=== PATIENT | male | born 1950 | race Caucasian/White ===

== ENCOUNTER 2018-12-30 08:55 | Inpatient (IN) ==
--- NOTE | 2018-11-25 15:19 | PAT Medication Instructions ---
Medication Instructions Date of Service November 25, 2018 Home Medications Voltaren 75 mg PO BID alprazolam [Xanax] 0.25 mg PO HS aspirin 81 mg PO QAM hydrocodone-acetaminophen [[place]] 1 tab PO Q6H PRN lisinopril 10 mg PO QAM multivitamin 1 tab PO QAM pantoprazole [Protonix] 40 mg PO QAM prednisone 10 mg PO QAM risedronate [Actonel] 150 mg PO MONTHLY Continue as directed risedronate [Actonel] 150 mg PO MONTHLY prednisone 10 mg PO QAM ASK your surgeon for instructions Voltaren 75 mg PO BID ASK your prescriber and surgeon aspirin 81 mg PO QAM DO NOT take the morning of surgery lisinopril 10 mg PO QAM multivitamin 1 tab PO QAM Take morning of surgery With a small sip of water, OTHERWISE NOTHING TO EAT OR DRINK AFTER MIDNIGHT: hydrocodone-acetaminophen [[place]] 1 tab PO Q6H PRN (okay to take up to 4 hours prior to surgery if needed) pantoprazole [Protonix] 40 mg PO QAM Take evening before surgery alprazolam [Xanax] 0.25 mg PO HS hydrocodone-acetaminophen [[place]] 1 tab PO Q6H PRN (if needed) Other Notes If you have any questions please call us at [phone] or [phone] or [phone] or [phone]
--- NOTE | 2018-11-28 09:49 | Anesthesiology Consultation ---
Date of Service November 28, 2018 Assessment & Plan (1) Encounter for pre-operative examination: Chart Review Chart Review: Acceptable Risk for Surgery and Patient seen in Pre Admission Testing Teaching & Discussion Pre-Anesthesia Teaching/Discussion Notes: Instructed NPO after midnight before surgery,except medications with 15 cc of water. Medication instructions provided according to the PAT guidelines. History Surgery Operation Date: 12/30/18 07:00 Proposed Procedures p Left Reverse Total Shoulder Arthroplasty - Adi De La O DO s Left Wrist Dorsal Ganglion Cyst Removal - Adi De La O DO Height/Weight Height: 5 ft 10 in Weight: 115.3 kg Allergies Allergy/AdvReac Type Severity Reaction Status Date / Time No Known Allergies Allergy Mild Verified 11/25/18 08:07 Medications Home Medications Medication Instructions Recorded Confirmed Last Taken Voltaren 75 mg PO BID 11/25/18 11/25/18 Unknown alprazolam [Xanax] 0.25 mg PO HS 11/25/18 11/25/18 Unknown aspirin 81 mg PO QAM 11/25/18 11/25/18 Unknown hydrocodone-acetaminophen [[place]] 1 tab PO Q6H PRN 11/25/18 11/25/18 Unknown lisinopril 10 mg PO QAM 11/25/18 11/25/18 Unknown multivitamin 1 tab PO QAM 11/25/18 11/25/18 Unknown pantoprazole [Protonix] 40 mg PO QAM 11/25/18 11/25/18 Unknown prednisone 10 mg PO QAM 11/25/18 11/25/18 Unknown risedronate [Actonel] 150 mg PO MONTHLY 11/25/18 11/25/18 Unknown Past Medical History Medical History Degenerative disc disease GERD (gastroesophageal reflux disease) CONTROLLED HTN (hypertension) History of anxiety Obesity Osteoarthritis Rheumatoid arthritis ON PREDNISONE 10MG DAILY (CHRONIC) Past Surgical History Surgical History H/O arthrodesis B/L FOOT + REVISION History of arthroscopic knee surgery RIGHT History of colonoscopy History of esophagogastroduodenoscopy (EGD) History of surgery RUPTURED QUADRICEPS TENDON REPAIR History of tonsillectomy History of total hip arthroplasty RIGHT History of total knee replacement B/L History of total shoulder replacement Right reverse TSA= 07/17/16= Grade view 2, MAC 4, ETT 8.0 at [facility] Hx of removal of cyst RIGHT POSTERIOR SHOULDER S/P debridement LEFT FOOT WOUND Past Anesthesia History No Hx of Anesthesia Complications and No Family Hx of Anesthesia Complications History of PONV No Motion Sickness Screening History of Motion Sickness: No Social History Smoking Status: Former smoker Do You Dip or Chew Tobacco: No Smoking End Date: QUIT CIGARETTES 01/2018; 1/2 PPD x 20 YEARS; DAILY VAPE USE Hx Alcohol Use: Yes Alcohol type: beer alcohol intake frequency: a few times a month Hx Substance Use: Yes substance use type: marijuana Last Used Substance Other:: MEDICAL MARIJUANA PEN HS 2/2 RA PAIN- NO LONGER HAS ACTIVE CARD Exercise / Class Metabolic Activity II 4-5 Yardwork/Stairs/Walk up hill Review of Systems Patient denies chest pain, shortness of breath, dyspnea on exertion, cough, wheezing, palpitations. Physical Exam Vital Signs VITALS BP 157/83 P 64 TEMP 98.1 SP02 95%RA RESP 16 PHYSICAL Full neck and c-spine range of motion. Full TMJ range of motion. TMD 3 finger breaths Mallampati Score 3 Dentition: partial on upper (only four remaining on upper), several missing sides/molars on lower, few crowns "all over" Lungs: clear throughout to auscultation Cardiac: regular rate and rhythm, no murmurs noted Spine: normal Carotid arteries: negative bruit Extremities: no edema Trimmed berger Short neck Testing Electrocardiogram Date: 11/28/18 NSR at 60bpm. iRBBB. Chest X-Ray Date: 11/28/18 1 cm right midlung zone opacity, finding which is felt to be secondary to a healing rib fracture. No evidence of acute parenchymal consolidation. No ev idence of failure. Cervical Spine Date: 11/28/18 No evidence for cervical spine instability during flexion or extension. Severe multilevel degenerative disc disease and facet arthrosis within the cervical spine which is similar to previous exam. Laboratory Results 11/28/18 10:37 11/28/18 10:37 Blood Type B Positive 11/28/18 10:37 Antibody Screen NEGATIVE 11/28/18 10:37 PT 10.1 Seconds (9.0-12.0) 11/28/18 10:37 INR 1.0 (0.9-1.1) 11/28/18 10:37 APTT 24.3 Seconds (21.0-31.0) 11/28/18 10:37
[2018-11-28 11:26] LABS: Basophils # (auto) 0.06 K/uL (0-0.2); Basophils % (auto) 0.6 %; Eosinophils # (auto) 0.05 K/uL (0-0.5); Eosinophils % (auto) 0.5 %; Hematocrit (blood only) 41.6 % (42-52); Hemoglobin 13.9 g/dL (14.0-18.0); Immature Granulocytes # (auto) 0.05 K/uL (0.00-0.02); Immature Granulocytes % (auto) 0.5 %; Lymphocytes # (auto) 0.95 K/uL (1.2-3.4); Lymphocytes % (auto) 9.2 %; Mean Corpuscular Hgb Conc 33.4 g/dL (32-36); Mean Corpuscular Volume 92.2 fL (80-100); Mean Platelet Volume 9.4 fL (7.4-10.4); Monocytes # (auto) 0.64 K/uL (0.11-0.59); Monocytes % (auto) 6.2 %; Neutrophils # (auto) 8.54 K/uL (1.4-6.5); Platelet Count 239 K/uL (130-400); RDW Coefficient of Variation 13.5 % (11.5-14.5); RDW Standard Deviation 45.5 fL (36.4-46.3); Red Blood Count 4.51 M/uL (4.7-6.1); White Blood Count 10.29 K/uL (4.8-10.8)
--- NOTE | 2018-11-28 11:30 | XRay Report ---
XR chest 2V routine CLINICAL HISTORY: PREOP COMPARISON STUDY: March 2011 FINDINGS: The cardiac and mediastinal contours remain stable. There are postsurgical changes of a rev erse total right shoulder arthroplasty. There is elevation of the left humerus suggesting chronic rot ator cuff tear. There is no acute parenchymal consolidation. There is no failure. There are no pleura l effusions. A right midlung zone opacity is felt to be secondary to a healing rib fracture. IMPRESSION: 1. 1 cm right midlung zone opacity, finding which is felt to be secondary to a healing rib fracture 2. No evidence of acute parenchymal consolidation. No evidence of failure. Electronically signed by: Leo Lino M.D. 11/28/2018 11:28 AM
[2018-11-28 11:41] LABS: Partial Thromboplastin Ratio 0.9; Partial Thromboplastin Time 24.3 Seconds (21.0-31.0); Prothrombin Time 10.1 Seconds (9.0-12.0)
[2018-11-28 11:47] LABS: Calcium 9.1 mg/dl (8.5-10.1); Creatinine Clr Calc Pharmacy 108.3 ml/min; Est GFR (African American) 104.8; Est GFR (Non-African American) 90.4; Potassium 4.5 mmol/L (3.5-5.1)
--- NOTE | 2018-11-28 12:06 | XRay Report ---
LATERAL CERVICAL SPINE RADIOGRAPHS WITH FLEXION AND EXTENSION CLINICAL HISTORY: RHEUMATOID ARTHRITIS COMPARISON STUDY: Cervical spine radiograph June 23, 2016. FINDINGS: There is 3 mm retrolisthesis of C4 on C5. There is severe multilevel degenerative disc dise ase and facet arthrosis. There is no evidence for cervical spine instability during flexion or extens ion. Alignment of the C1-C2 articulation remains anatomic. There is no fracture. IMPRESSION: 1. No evidence for cervical spine instability during flexion or extension. 2. Severe multilevel degenerative disc disease and facet arthrosis within the cervical spine which is similar to previous exam. Electronically signed by: Michael Martínez M.D. 11/28/2018 12:05 PM
--- NOTE | 2018-12-29 21:12 | History & Physical Report ---
Date of Service December 29, 2018 Assessment & Plan (1) Rotator cuff arthropathy of left shoulder: Proceed with a left reverse total shoulder arthroplasty. Postoperatively he will be kept overnight in the hospital for postoperative medical management. He plans to go to out patient physical therapy at [facility]. Present on Admission?: Yes History of Present Illness Chief Complaint: Rotator cuff arthropathy of the left shoulder Primary Care Provider: Marlon Ramirez MD Philippe is a pleasant 68-year-old male who I did a right reverse shoulder arthroplasty on about 2 years ago. He is done very well with that. Unfortunately he is having a lot of pain in his left shoulder. X-rays and clinical examination have been diagnostic for rotator cuff arthropathy of the left shoulder. After failing conservative treatment, he has elected proceed with a left reverse shoulder arthroplasty. Allergies Allergy/AdvReac Type Severity Reaction Status Date / Time No Known Allergies Allergy Mild Verified 11/25/18 08:07 Home Medications Home Medications Medication Instructions Recorded Confirmed Type Voltaren 75 mg PO BID 11/25/18 11/25/18 History alprazolam [Xanax] 0.25 mg PO HS 11/25/18 11/25/18 History aspirin 81 mg PO QAM 11/25/18 11/25/18 History hydrocodone-acetaminophen [[place]] 1 tab PO Q6H PRN 11/25/18 11/25/18 History lisinopril 10 mg PO QAM 11/25/18 11/25/18 History multivitamin 1 tab PO QAM 11/25/18 11/25/18 History pantoprazole [Protonix] 40 mg PO QAM 11/25/18 11/25/18 History prednisone 10 mg PO QAM 11/25/18 11/25/18 History risedronate [Actonel] 150 mg PO MONTHLY 11/25/18 11/25/18 History Past Med/Surg History Medical History Degenerative disc disease GERD (gastroesophageal reflux disease) CONTROLLED HTN (hypertension) History of anxiety Obesity Osteoarthritis Rheumatoid arthritis ON PREDNISONE 10MG DAILY (CHRONIC) Surgical History H/O arthrodesis B/L FOOT + REVISION History of arthroscopic knee surgery RIGHT History of colonoscopy History of esophagogastroduodenoscopy (EGD) History of surgery RUPTURED QUADRICEPS TENDON REPAIR History of tonsillectomy History of total hip arthroplasty RIGHT History of total knee replacement B/L History of total shoulder replacement Right reverse TSA= 07/17/16= Grade view 2, MAC 4, ETT 8.0 at [facility] Hx of removal of cyst RIGHT POSTERIOR SHOULDER S/P debridement LEFT FOOT WOUND Social History Preferred Language: Maltese Communication Ability: Effective Beliefs That Will Affect Care: None Current Living Situation: Spouse Feels Safe at Home: Yes Smoking Status: Former smoker Second Hand Exposure: Yes (PREVIOUS EXPOSURE) Hx Alcohol Use: Yes Alcohol type: beer Hx Substance Use: Yes substance use type: marijuana Review of Systems All systems reviewed & are unremarkable except as noted in HPI & below Physical Exam Constitutional: WD/WN, vitals as above Eyes: PERRL, conjunctivae normal, anicteric sclerae ENMT: external ear and nose normal, oropharynx normal Neck: trachea midline, no thyromegaly Respiratory: normal respiratory effort Cardiovascular: RRR, no murmur, no edema Gastrointestinal (Abdomen): normal bowel sounds, soft, nontender, no hepatosplenomegaly Musculoskeletal: Physical examination of the left shoulder reveals decreased range of motion and significant weakness. There is tenderness palpation along the anterior glenohumeral joint line. The right upper extremity is neurovascularly intact. Psychiatric: A+Ox3, euthymic affect Results & Data Diagnostic Findings Radiographs of the left shoulder show some signs of osteoarthritis with blunting of the greater tuberosity and some superior migration of the humeral head on the glenoid.
[~2018-12-30 08:55] MED LIST: ACETAMINOPHEN 500 MG TAB PO SCH; BUPIVACAINE 0.5 % 5 MG/1 ML PF 10ML VIAL ONE; CEFAZOLIN 2000MG 2,000 MG/15 ML SYR IV SCH; FAMOTIDINE 20 MG TAB PO SCH; GABAPENTIN 300 MG PO SCH; LR 15ML/HR IV SCH; LR 60ML/HR IV SCH; ROPIVACAINE 0.5% HCL/PF 150 MG, BUPIVACAINE 0.5% MPF 30 ML, EPINEPHrine 30MG/30ML (OR U... INFIL SCH; TRANEXAMIC ACID 1,000 MG **IV Intra-op IV SCH; TRANEXAMIC ACID 1,000 MG **IV Pre-op IV SCH
[2018-12-30] MEDS ORDERED: MIDAZOLAM HCL 1 MG/ML 2ML VIAL ONE (10:42)
[2018-12-30] MEDS ORDERED: fentaNYL citrate 100 MCG/2 ML VIAL ONE ×2 (10:42→13:31)
--- NOTE | 2018-12-30 10:55 | History & Physical Bridge Note ---
Date of Service December 30, 2018 History & Physical Bridge Note I have examined the patient, reviewed the History & Physical and in the interval since the performance of the History & Physical I have noted the following changes of clinical significance: no changes noted
[2018-12-30] MEDS ORDERED: ePHEDrine sulfate 50 MG/ML AMP IV PRN (11:10)
[2018-12-30] MEDS ORDERED: ONDANSETRON INJ 2 MG/ML 2 ML VIAL IV PRN ×2 (11:10→16:13)
[2018-12-30] MEDS ORDERED: ATROPINE SULFATE 0.1 MG/ML 10ML SYR IV PRN (11:10)
[2018-12-30] MEDS ORDERED: BUPIVACAINE/EPINEPHRINE 0.5% MPF 1:200,000 30 ML VIAL ONE (11:28)
[2018-12-30] MEDS ORDERED: ORTHO JOINT ANESTHETIC ONE (11:29)
[2018-12-30] MEDS ORDERED: POVIDONE-IODINE OP SOLN 30 ML BTL ONE (11:29)
[2018-12-30] MEDS ORDERED: ONDANSETRON INJ 2 MG/ML 2 ML VIAL ONE (13:10)
[2018-12-30] MEDS ORDERED: LIDOCAINE HCL 2% 2 ML VIAL/AMP(20MG/ML) INFIL ONE (13:10)
[2018-12-30] MEDS ORDERED: PROPOFOL IV EMULSION 10 MG/ML 20 ML VIAL IV ONE (13:10)
[2018-12-30] MEDS ORDERED: ROCURONIUM BROMIDE 10 MG/ML 5 ML VIAL ONE (13:10)
[2018-12-30] MEDS ORDERED: DEXAMETHASONE SOD INJ 4 MG/ML VIAL ONE (13:10)
[2018-12-30] MEDS ORDERED: ePHEDrine sulfate 50 MG/ML SYR ONE (13:23)
[2018-12-30] MEDS ORDERED: NEOSTIGMINE METHYLSULFATE 5 MG/5 ML SYR ONE (14:21)
[2018-12-30] MEDS ORDERED: GLYCOPYRROLATE 0.2 MG/ML VIAL ONE (14:21)
--- NOTE | 2018-12-30 14:26 | Operative Report ---
Post Operative Report Pre & Post Diagnosis Operation Date: 12/30/18 11:30 Pre-Op Diagnosis: Left Shoulder Degenerative Joint Disease and rotator cuff arthropathy Post-Op Diagnosis: Left Shoulder Degenerative Joint Disease and rotator cuff arthropathy Procedure Operation Date: 12/30/18 11:30 Actual Procedures p Left Reverse Total Shoulder Arthroplasty(Left) - Adi De La O DO Surgeon Adi De La O DO Debarker Operator Adi Richardson PAC Estimated Blood Loss 300 Findings Consistent with Post-Op Diagnosis Specimens Left humeral head Complications none Disposition Disposition: Recovery Room Indications Philippe is a pleasant 68-year-old male who is been dealing with chronic increasing left shoulder pain. He has a history of rheumatoid arthritis. X-rays and clinical examination were diagnostic for advanced arthropathy of the left shoulder. There was significant superior glenoid wear. After failing conservative treatment, he elected to proceed with a left reverse shoulder arthroplasty. Description of Procedure Implants used: I used a [employer] Comprehensive reverse total shoulder arthroplasty system with a size 11 press fit mini humeral stem, a standard humeral tray and a standard humeral bearing, a 25 mm medium augmented baseplate with a 6.5 mm central screw and superior and inferior locking screws, and a size 36 mm eccentric glenosphere. The patient arrived at [facility] for the above procedure. There were seen in the preoperative holding area and the operative extremity was identified and signed. They were given a preoperative antibiotic and an interscalene nerve block. They were taken back to the operating room, laid on table in supine position, and put under general anesthesia. They were then put into the beachchair position. The shoulder was then prepped and draped in sterile fashion. A timeout was done and the patient in the operative extremity was properly identified. A deltopectoral approach was used. Dissection was taken down through the fascia and the deltoid was retracted laterally and the conjoined tendon was retracted medially. The anterior shoulder was exposed. The long head of the biceps tendon was tenodesed to the upper border of the pectoralis major. The subscapularis was then released off the lesser tuberosity with a centimeter of cuff tissue remaining. The inferior capsule was released and the humeral head was dislocated. A canal finding reamer was sent down the center of the humeral canal. Sequential reaming up to a size 11 reamer was done. Off that reamer, a proximal humeral resection guide was placed. The proximal humerus was resected at 135 of inclination and 25 of retroversion. Osteophytes were then removed and the glenoid was exposed. Time was spent doing a complete capsular and labral release. A [employer] signature guide was then attached onto the anterior rim of the glenoid. A 3.2 mm Steinmann pin was then placed in the reverse total shoulder arthroplasty hole. The glenoid baseplate was then reamed. Special guides were used for a medium augmented baseplate. The medium augment was in the posterior superior region. The final size 25 mm medium augmented baseplate was then impacted in the place. A 6.5 mm central screw was then placed followed by superior and inferior locking screws. A 36 eccentric glenoid sphere was then impacted into place. Surrounding soft tissues were then injected with 100 cc an orthopedic pain control cocktail. The proximal humerus was then exposed. Sequential broaching of the humerus up to a size 11 broach was done. Off that broach a standard humeral tray was trialed. The shoulder was then reduced, brought through a full range of motion and felt to be stable. The shoulder was then dislocated and the broach was removed. The final size 11 mini press-fit humeral stem was then impacted into place. A standard humeral bearing was then snapped onto a standard humeral tray and the ring-lock mechanism was engaged. The humeral tray was then impacted onto the humeral stem. The shoulder was once again reduced, brought through a full range of motion and felt to be stable. The subscapularis was chronically torn and unable to be repaired. A dilute betadyne lavage was th en done for 3 minutes. The joint was then irrigated with normal saline solution. Hemostasis was obtained. The skin was then closed with 2-0 Vicryl, 3-0V lock suture, and tiffanie. A soft dressing and a regular arm sling was placed. The patient was then extubated and transferred to a hospital bed. They were taken to the postanesthesia care unit in stable condition. They tolerated the procedure well. I attest to the content of the Intraoperative Record and any orders documented therein. Any exceptions are noted below.
--- NOTE | 2018-12-30 15:21 | XRay Report ---
XR shoulder LT min 2V routine CLINICAL HISTORY: Post shoulder surgery COMPARISON STUDY: Bilateral shoulders 08/24/2018. FINDINGS: There is a left reverse total shoulder arthroplasty. The hardware appears intact. No fractu re or dislocation. Skin tiffanie are in place. Distal resection of the acromium and clavicle is also n oted. IMPRESSION: Status post left reverse total shoulder arthroplasty. No evidence for hardware complicat ion. Electronically signed by: Virgilio Ko M.D. 12/30/2018 3:20 PM
[2018-12-30] MEDS: fentaNYL citrate 100 MCG/2 ML VIAL IV PRN ×2 (15:30→15:55)
[2018-12-30] MEDS ORDERED: ACETAMINOPHEN 1000 MG/100 ML IV IV ONE (15:33)
[2018-12-30] MEDS ORDERED: ACETAMINOPHEN 1,000 MG/100 ML VIAL IV ONE (15:48)
--- NOTE | 2018-12-30 16:02 | Anesthesiology Progress Note ---
Date of Service December 30, 2018 Anesthesia Post Procedure Vital Signs Vital Signs: Temp Pulse Pulse Resp BP Pulse Ox 12/30/18 15:55 64 14 134/86 94 12/30/18 15:45 97.9 F 65 15 163/88 H 97 12/30/18 15:35 65 14 138/88 94 12/30/18 15:25 70 18 139/92 98 12/30/18 15:15 85 17 153/94 H 93 12/30/18 15:05 66 11 L 163/90 H 100 12/30/18 14:55 75 11 L 175/88 H 100 12/30/18 14:49 97.3 F L 76 12 170/78 H 98 12/30/18 09:45 98.6 F 71 20 140/72 94 Pain Intensity Left Shoulder: Pain Intensity: 4 Notes Mental Status: alert / awake / arousable and participated in evaluation Patient Amnestic to Procedure: Yes Nausea / Vomiting: adequately controlled Pain: adequately controlled Airway Patency, RR, SpO2: stable & adequate BP & HR: stable & adequate Hydration State: stable & adequate Anesthetic Complications: no major complications apparent and Pt Satisfied with anesthetic care
[2018-12-30] MEDS ORDERED: HYDROCODONE/ACETAMINOPHEN 10/325 TAB PO PRN (16:13)
[2018-12-30] MEDS ORDERED: BISACODYL 10 MG SUPP PR PRN (16:13)
[2018-12-30] MEDS ORDERED: NALOXONE HCL 0.4 MG/1 ML VIAL/CARP IV PRN (16:13)
[2018-12-30] MEDS ORDERED: HYDROmorphone INJ 0.5 MG/0.5 ML SYR IV PRN (16:13)
[2018-12-30] MEDS ORDERED: RISEDRONATE 150 MG PO SCH (16:13)
[2018-12-30] MEDS ORDERED: MAGNESIUM HYDROXIDE SUSP 30 ML UDC PO PRN (16:13)
[2018-12-30] MEDS ORDERED: METOCLOPRAMIDE HCL INJ 5 MG/ML 2 ML VIAL IV PRN (16:13)
[2018-12-30] MEDS: SODIUM CHLORIDE 0.9% 1000ML 1,000 ML IV SCH (17:12)
[2018-12-30] MEDS: KETOROLAC TROMETHAMINE 15 MG/ML VIAL IV SCH (18:47)
[2018-12-30] MEDS ORDERED: ALPRAZolam 0.25 MG TABLET PO SCH (21:00)
[2018-12-30] MEDS: CEFAZOLIN 2000MG 2,000 MG/15 ML SYR IV SCH (21:00)
[2018-12-30] MEDS ORDERED: SENNA 8.6 MG TAB PO SCH (21:00)
[2018-12-30] MEDS: DOCUSATE SODIUM 100 MG CAP PO SCH (21:11)
[2018-12-31] MEDS: KETOROLAC TROMETHAMINE 15 MG/ML VIAL IV SCH ×2 (00:32→06:30)
[2018-12-31] MEDS: CEFAZOLIN 2000MG 2,000 MG/15 ML SYR IV SCH (03:25)
[2018-12-31] MEDS: SODIUM CHLORIDE 0.9% 1000ML 1,000 ML IV SCH (03:28)
[2018-12-31 06:16] LABS: Basophils # (auto) 0.01 K/uL (0-0.2); Basophils % (auto) 0.1 %; Hematocrit (blood only) 30.5 % (42-52); Hemoglobin 10.1 g/dL (14.0-18.0); Immature Granulocytes # (auto) 0.05 K/uL (0.00-0.02); Immature Granulocytes % (auto) 0.3 %; Lymphocytes # (auto) 0.69 K/uL (1.2-3.4); Lymphocytes % (auto) 4.7 %; Mean Corpuscular Hgb Conc 33.1 g/dL (32-36); Mean Corpuscular Volume 90.2 fL (80-100); Mean Platelet Volume 8.7 fL (7.4-10.4); Monocytes # (auto) 0.72 K/uL (0.11-0.59); Monocytes % (auto) 4.9 %; Neutrophils # (auto) 13.17 K/uL (1.4-6.5); Platelet Count 247 K/uL (130-400); RDW Coefficient of Variation 12.9 % (11.5-14.5); RDW Standard Deviation 42.6 fL (36.4-46.3); Red Blood Count 3.38 M/uL (4.7-6.1); White Blood Count 14.64 K/uL (4.8-10.8)
[2018-12-31 06:47] LABS: BUN Creatinine Ratio 16.7 (10-20); Calcium 7.5 mg/dl (8.5-10.1); Creatinine Clr Calc Pharmacy 93.1 ml/min; Est GFR (African American) 93.8; Est GFR (Non-African American) 80.9; Potassium 4.2 mmol/L (3.5-5.1)
--- NOTE | 2018-12-31 08:42 | Orthopedic Progress Note ---
Date of Service December 31, 2018 Assessment & Plan (1) Rotator cuff arthropathy of left shoulder: Overall he is doing fairly well. Is not having much pain in the left shoulder. We are still waiting for the block to wear off. He will be seen by physical therapy this morning for gentle range of motion exercises. He can be discharged home later this morning with his home pain medications. He will follow-up with orthopedics in 2 to 3 weeks. He plans to use outpatient physical therapy upon discharge. Present on Admission?: Yes Subjective Philippe was seen and examined at bedside this morning. Overall is doing very well. Is not having much pain in the shoulder. He was able to get some sleep last night. He has no complaints. Physical Exam Musculoskeletal: On physical examination of the left shoulder, the dressing is clean and dry. His hand is still numb. He has very limited dorsiflexion of his wrist. This is likely secondary to the block. He is wearing a sling as instructed. Results & Data Vital Signs (Past 12 Hours) Vital Signs Temp Pulse Resp BP Pulse Ox 12/31/18 08:27 60 18 143/79 H 93 12/31/18 02:59 36.6 C 59 L 16 103/62 92 12/30/18 23:09 36.8 C 65 16 102/57 L 95 Laboratory Results H & H 11/28/18 12/31/18 Range/Units 10:37 05:44 Hgb 13.9 L 10.1 L (14.0-18.0) g/dL Hct 41.6 L 30.5 L (42-52) % Coagulation 11/28/18 Range/Units 10:37 INR 1.0 (0.9-1.1) Diagnostic Findings Postoperative x-rays of the left shoulder show the prosthesis to be in anatomic alignment without any evidence of fracture, dislocation, or loosening.
--- NOTE | 2018-12-31 08:43 | Discharge Summary ---
Date of Service December 31, 2018 Admission HPI Per Admitting Provider Philippe is a pleasant 68-year-old male who I did a right reverse shoulder arthroplasty on about 2 years ago. He is done very well with that. Unfortunately he is having a lot of pain in his left shoulder. X-rays and cli nical examination have been diagnostic for rotator cuff arthropathy of the left shoulder. After failing conservative treatment, he has elected proceed with a left reverse shoulder arthroplasty. Specialty Data Orthopedic H & H 11/28/18 12/31/18 Range/Units 10:37 05:44 Hgb 13.9 L 10.1 L (14.0-18.0) g/dL Hct 41.6 L 30.5 L (42-52) % Coagulation 11/28/18 Range/Units 10:37 INR 1.0 (0.9-1.1) Discharge Data Consultations 12/30/18 16:13 Consult Case Management - Discharge Planning Routine Procedures Performed Operation Date: 12/30/18 11:30 Actual Procedures p Left Reverse Total Shoulder Arthroplasty(Left) - Adi De La O DO Hospital Course (1) Rotator cuff arthropathy of left shoulder: On December 30, 2018 Philippe arrived at [facility] and underwent a left reverse shoulder arthroplasty without complication. He had a general anesthetic and a left interscalene nerve block. Postoperatively he was placed in an arm sling and discharged to general orthopedic floors. His hospital course is uneventful. On postop day #1 his H&H was stable and his pain was well controlled. He was able to participate well with physical therapy doing gentle range of motion exercises. He was then discharged to home with outpatient physical therapy. He will follow-up with orthopedics in 2 weeks. Discharge Instructions Home Medications Medication Instructions Recorded Confirmed Voltaren 75 mg PO BID 11/25/18 12/30/18 alprazolam [Xanax] 0.25 mg PO HS 11/25/18 12/30/18 aspirin 81 mg PO QAM 11/25/18 12/30/18 lisinopril 10 mg PO QAM 11/25/18 12/30/18 multivitamin 1 tab PO QAM 11/25/18 12/30/18 pantoprazole [Protonix] 40 mg PO QAM 11/25/18 12/30/18 prednisone 10 mg PO QAM 11/25/18 12/30/18 risedronate [Actonel] 150 mg PO MONTHLY 11/25/18 12/30/18 Previous Rx's Medication Instructions Recorded hydrocodone-acetaminophen [[place]] 1 tab PO Q6H PRN #30 tab 12/31/18
[2018-12-31] MEDS: DOCUSATE SODIUM 100 MG CAP PO SCH (08:51)
[2018-12-31] MEDS ORDERED: MULTIVITAMIN TAB PO SCH (09:00)
[2018-12-31] MEDS ORDERED: LISINOPRIL 10 MG TAB PO SCH (09:00)
[2018-12-31] MEDS ORDERED: PANTOprazole 40 MG TAB PO SCH (09:00)
[2018-12-31] MEDS ORDERED: predniSONE 10 MG TABLET PO SCH (09:00)
[2019-01-01] MEDS ORDERED: DICLOFENAC SODIUM 75 MG TABCR PO SCH (21:00)
== END 2018-12-31 11:12 | disposition home or self-care (01) | DRG 483 ==
LOC: ASU 08:55 → 3E 14:53

== ENCOUNTER 2019-02-06 10:45 | Inpatient (IN) ==
--- NOTE | 2019-02-01 12:51 | Anesthesiology Consultation ---
Date of Service February 01, 2019 Assessment & Plan (1) Encounter for pre-operative examination: Chart Review Chart Review: Acceptable Risk for Surgery and Patient NOT seen in Pre Admission Testing History Surgery Operation Date: 02/06/19 11:50 Proposed Procedures p Left Revision Reverse Shoulder Replacement - Adi De La O DO Height/Weight Height: 5 ft 10 in Weight: 115.3 kg Allergies Allergy/AdvReac Type Severity Reaction Status Date / Time No Known Allergies Allergy Mild Verified 11/25/18 08:07 Medications Home Medications Medication Instructions Recorded Confirmed Last Taken Voltaren 75 mg PO BID 11/25/18 12/30/18 12/23/18 08:00 alprazolam [Xanax] 0.25 mg PO HS 11/25/18 12/30/18 12/29/18 22:00 aspirin 81 mg PO QAM 11/25/18 12/30/18 12/29/18 08:00 lisinopril 10 mg PO QAM 11/25/18 12/30/18 12/29/18 08:00 multivitamin 1 tab PO QAM 11/25/18 12/30/18 12/22/18 08:00 pantoprazole [Protonix] 40 mg PO QAM 11/25/18 12/30/18 12/30/18 06:00 prednisone 10 mg PO QAM 11/25/18 12/30/18 12/30/18 06:00 risedronate [Actonel] 150 mg PO MONTHLY 11/25/18 12/30/18 12/01/18 07:00 hydrocodone-acetaminophen [[place]] 1 tab PO Q6H PRN #30 tab 12/31/18 Unknown Past Medical History Medical History Degenerative disc disease GERD (gastroesophageal reflux disease) CONTROLLED HTN (hypertension) History of anxiety Obesity Osteoarthritis Rheumatoid arthritis ON PREDNISONE 10MG DAILY (CHRONIC) Past Surgical History Surgical History History of left shoulder replacement 12/30/18 [facility], MAC 4, ETT 8.0, GRADE VIEW II. SMOOTH IV INDUCTION, EZ MASK, ATRAUMATIC DVL X 1, OROPHARYNX CLEAR. H/O arthrodesis B/L FOOT + REVISION History of arthroscopic knee surgery RIGHT History of colonoscopy History of esophagogastroduodenoscopy (EGD) History of surgery RUPTURED QUADRICEPS TENDON REPAIR History of tonsillectomy History of total hip arthroplasty RIGHT History of total knee replacement B/L History of total shoulder replacement Right reverse TSA= 07/17/16= Grade view 2, MAC 4, ETT 8.0 at [facility] Hx of removal of cyst RIGHT POSTERIOR SHOULDER S/P debridement LEFT FOOT WOUND Past Anesthesia History LEFT TSA 12/30/18 [facility], MAC 4, ETT 8.0, GRADE VIEW II. SMOOTH IV INDUCTION, EZ MASK, ATRAUMATIC DVL X 1, OROPHARYNX CLEAR. Social History Smoking Status: Former smoker Hx Alcohol Use: Yes Alcohol type: beer alcohol intake frequency: a few times a month Hx Substance Use: No substance use type: does not use Testing Laboratory Results Laboratory Tests 02/01/19 02/01/19 02/01/19 09:52 09:52 09:52 WBC 7.78 Hgb 12.8 L Hct 38.4 L Plt Count 244 PT 10.2 INR 1.0 APTT 24.3 Sodium 140 Potassium 4.0 Chloride 107 Carbon Dioxide 26 BUN 12 Creatinine 0.85 Glucose 117 H Electrocardiogram Date: 11/25/18 Findings: + NSR @ (60) iRBBB. No significant change from 06/23/16 EKG. Chest X-Ray Date: 11/28/18 1 cm right midlung zone opacity, finding which is felt to be secondary to a healing rib fracture. No evidence of acute parenchymal consolidation. No evidence of failure. Cervical Spine Date: 11/28/18 No evidence for cervical spine instability during flexion or extension. Severe multilevel degenerative disc disease and facet arthrosis within the cervical spine which is similar to previous exam.
--- NOTE | 2019-02-03 17:28 | History & Physical Report ---
Date of Service February 03, 2019 Assessment & Plan (1) Periprosthetic fracture around internal prosthetic shoulder joint: We will proceed with a revision of the left shoulder. He understands that we will either be reimplanting the baseplate or possibly setting up for a two- stage revision. Postoperatively he will be kept in an arm sling and kept overnight in the hospital for postop medical management. Present on Admission?: Yes History of Present Illness Chief Complaint: Left periprosthetic glenoid fracture Primary Care Provider: Marlon Ramirez MD Philippe is a 68-year-old male with advanced rheumatoid arthritis. He underwent a reverse left shoulder arthroplasty on December 30, 2018. He was initially doing very well postoperatively. Unfortunately, 4 weeks after the procedure he was out of his sling and he reached suddenly to grab something that was falling. He felt a sudden crack in the shoulder. He went to physical therapy and came to our office with concerns. X-rays showed a periprosthetic glenoid neck fracture. I sent him for CT scan of the shoulder to confirm the diagnosis. After discussions in the office, he has elected to undergo a revision shoulder arthroplasty with either reimplantation of the glenoid baseplate or possible two stage revision. Allergies Allergy/AdvReac Type Severity Reaction Status Date / Time No Known Allergies Allergy Mild Verified 02/02/19 10:11 Home Medications Home Medications Medication Instructions Recorded Confirmed Type Voltaren 75 mg PO BID 11/25/18 02/02/19 History alprazolam [Xanax] 0.25 mg PO HS 11/25/18 02/02/19 History aspirin 81 mg PO QAM 11/25/18 02/02/19 History lisinopril 10 mg PO QAM 11/25/18 02/02/19 History multivitamin 1 tab PO QAM 11/25/18 02/02/19 History pantoprazole [Protonix] 40 mg PO QAM 11/25/18 02/02/19 History prednisone 10 mg PO QAM 11/25/18 02/02/19 History risedronate [Actonel] 150 mg PO MONTHLY 11/25/18 02/02/19 History hydrocodone-acetaminophen [[place]] 1 tab PO Q6H PRN #30 tab 12/31/18 02/02/19 Rx Past Med/Surg History Social History Preferred Language: Hebrew Communication Ability: Effective Beliefs That Will Affect Care: None Current Living Situation: Spouse Feels Safe at Home: Yes Smoking Status: Former smoker Second Hand Exposure: Yes Hx Alcohol Use: Yes Alcohol type: beer Hx Substance Use: No Review of Systems All systems reviewed & are unremarkable except as noted in HPI & below Physical Exam Musculoskeletal: On physical examination of his left shoulder, incisions well- healed. His radial median ulnar nerves are checked and intact his wrist. His axillary nerve was intact bilateral sensation. He is unable to move his left shoulder. Results & Data Diagnostic Findings X-rays of the left shoulder do show superior dislocation of the humeral component with a fracture of the scapular neck and inferior angulation of the glenosphere CT scan of the left shoulder is suggestive of a fracture around the glenoid neck with inferior angulation of the glenoid component.
[~2019-02-06 10:45] MED LIST changes: +ROPIVACAINE 0.5% 5 MG/ML 30 ML VIAL ONE
--- NOTE | 2019-02-06 11:27 | History & Physical Bridge Note ---
Date of Service February 06, 2019 History & Physical Bridge Note I have examined the patient, reviewed the History & Physical and in the interval since the performance of the History & Physical I have noted the following changes of clinical significance: no changes noted
[2019-02-06] MEDS ORDERED: PROPOFOL IV EMULSION 10 MG/ML 20 ML VIAL IV ONE (12:12)
[2019-02-06] MEDS ORDERED: MIDAZOLAM HCL 1 MG/ML 2ML VIAL ONE (12:12)
[2019-02-06] MEDS ORDERED: ONDANSETRON INJ 2 MG/ML 2 ML VIAL ONE (12:12)
[2019-02-06] MEDS ORDERED: fentaNYL citrate 100 MCG/2 ML VIAL ONE (12:12)
[2019-02-06] MEDS ORDERED: LIDOCAINE HCL 2% 2 ML VIAL/AMP(20MG/ML) INFIL ONE (12:12)
[2019-02-06] MEDS ORDERED: POVIDONE-IODINE OP SOLN 30 ML BTL ONE (12:17)
[2019-02-06] MEDS ORDERED: ORTHO JOINT ANESTHETIC ONE (12:17)
[2019-02-06] MEDS ORDERED: ONDANSETRON INJ 2 MG/ML 2 ML VIAL IV PRN ×2 (12:25→16:23)
[2019-02-06] MEDS ORDERED: fentaNYL citrate 100 MCG/2 ML VIAL IV PRN (12:25)
[2019-02-06] MEDS ORDERED: ATROPINE SULFATE 0.1 MG/ML 10ML SYR IV PRN (12:25)
[2019-02-06] MEDS ORDERED: ePHEDrine sulfate 50 MG/ML AMP IV PRN (12:25)
[2019-02-06] MEDS ORDERED: DEXAMETHASONE SOD INJ 4 MG/ML VIAL ONE (14:55)
[2019-02-06] MEDS ORDERED: NEOSTIGMINE METHYLSULFATE 5 MG/5 ML SYR ONE ×2 (14:55→15:01)
[2019-02-06] MEDS ORDERED: ROCURONIUM BROMIDE 10 MG/ML 5 ML VIAL ONE (14:55)
[2019-02-06] MEDS ORDERED: GLYCOPYRROLATE 0.2 MG/ML VIAL ONE (14:55)
--- NOTE | 2019-02-06 14:58 | Operative Report ---
Post Operative Report Pre & Post Diagnosis Operation Date: 02/06/19 13:10 Pre-Op Diagnosis: Periprosthetic left scapular fracture with reverse shoulder arthroplasty dislocation Post-Op Diagnosis: Periprosthetic left scapular fracture with reverse shoulder arthroplasty d islocation Procedure Operation Date: 02/06/19 13:10 Actual Procedures Open reduction of periprosthetic fracture dislocation of the left shoulder (Left) - Adi De La O DO Surgeon Adi De La O, Material Flow Engineer Adi Richardson PAC Estimated Blood Loss 20 Findings Consistent with Post-Op Diagnosis Specimens None Complications none Disposition Disposition: Recovery Room Indications Philippe is a pleasant 68-year-old male who underwent a reverse left shoulder arthroplasty on December 30, 2018. He did well for 4 weeks and then he was out of his sling and reached awkwardly and felt a snap in his left shoulder. He came to the office and x-ray showed a scapular neck fracture with a joint dislocation. He elected to proceed with open reduction and possible scapular repair. Description of Procedure On March 08, 2019 he arrived at [facility] for the above procedure. He was seen in the preoperative holding area and the operative extremity was identified and signed. He was given a preoperative antibiotic and a left interscalene nerve block. He was taken back to the operating room and laid on the table in the supine position. He was put under general anesthesia. Is put into the beachchair position. The left shoulder was prepped and draped in sterile fashion. A timeout was done. The patient and the operative extremity was properly identified. The old deltopectoral incision was opened back up. Dissection was taken down through the deltopectoral interval and the deltoid was retracted laterally and the conjoined tendon was retracted medially. The shoulder was dislocated with the humeral tray anterior. I was able to get a nice gentle reduction of the glenohumeral joint. When I reduce the shoulder the scapular fracture returned to near anatomic position. I was able to bring the shoulder through full range of motion without any instability. There was very subtle motion of the glenoid region. At this point I made the decision to just keep him in a sling for an extended period of time to get this fracture chance to heal. I do not feel comfortable taking out the components and trying to get screw fixation across the neck of the scapula. The wound was then irrigated and cleaned with a 3- minute Betadine lavage. Once again the shoulder was brought through full range of motion. Everything was very stable there is very minimal micromotion of the scapular region. The fascia was then closed with 2-0 Vicryl skin was closed with 3-0 Vicryl, 3-0 VLock suture and tiffanie. He was then placed in a soft dressing. He was then extubated and transferred to a [facility]. He was taken to the postanesthesia care unit in stable condition. He tolerated the procedure well. I attest to the content of the Intraoperative Record and any orders documented therein. Any exceptions are noted below.
[2019-02-06] MEDS ORDERED: ePHEDrine sulfate 50 MG/ML SYR ONE (15:01)
--- NOTE | 2019-02-06 15:49 | XRay Report ---
XR shoulder LT min 2V routine CLINICAL HISTORY: Post shoulder surgery COMPARISON: Left shoulder radiographs and left shoulder CT February 01, 2019. FINDINGS: Reverse total left shoulder arthroplasty is noted. There are skin tiffanie. There are no un expected radiopaque foreign bodies. Periprosthetic scapular fracture is noted. Findings suggest open reduction of the fracture. IMPRESSION: Total left shoulder arthroplasty. Hardware intact. Anatomic alignment. Redemonstration of a periprosthetic scapular fracture. Electronically signed by: Michael Martínez M.D. 02/06/2019 3:47 PM
--- NOTE | 2019-02-06 15:55 | Anesthesiology Progress Note ---
Date of Service February 06, 2019 Anesthesia Post Procedure Vital Signs Vital Signs: Temp Pulse Resp BP Pulse Ox 02/06/19 15:50 69 15 124/66 93 02/06/19 15:40 85 18 128/73 93 02/06/19 15:30 79 17 133/69 100 02/06/19 15:21 36.0 C L 91 H 17 134/71 100 02/06/19 11:34 154/86 H 02/06/19 11:19 37.2 C 79 20 175/100 H 97 Pain Intensity Left Shoulder: Pain Intensity: 7 Transfer of Care Handoff Completed per policy Notes Mental Status: alert / awake / arousable Patient Amnestic to Procedure: Yes Nausea / Vomiting: adequately controlled Pain: adequately controlled Airway Patency, RR, SpO2: stable & adequate BP & HR: stable & adequate Hydration State: stable & adequate Anesthetic Complications: no major complications apparent Notes: block working well in pacu
[2019-02-06] MEDS ORDERED: METOCLOPRAMIDE HCL INJ 5 MG/ML 2 ML VIAL IV PRN (16:23)
[2019-02-06] MEDS ORDERED: MAGNESIUM HYDROXIDE SUSP 30 ML UDC PO PRN (16:23)
[2019-02-06] MEDS ORDERED: NALOXONE HCL 0.4 MG/1 ML VIAL/CARP IV PRN (16:23)
[2019-02-06] MEDS ORDERED: HYDROCODONE/ACETAMINOPHEN 10/325 TAB PO PRN (16:23)
[2019-02-06] MEDS ORDERED: BISACODYL 10 MG SUPP PR PRN (16:23)
[2019-02-06] MEDS ORDERED: HYDROmorphone INJ 0.5 MG/0.5 ML SYR IV PRN (16:23)
[2019-02-06] MEDS: KETOROLAC 30 MG/ML VIAL IV SCH (17:27)
[2019-02-06] MEDS: DOCUSATE SODIUM 100 MG CAP PO SCH (20:26)
[2019-02-06] MEDS ORDERED: ALPRAZolam 0.25 MG TABLET PO SCH (21:00)
[2019-02-06] MEDS ORDERED: SENNA 8.6 MG TAB PO SCH (21:00)
[2019-02-06] MEDS: CEFAZOLIN 2000MG 2,000 MG/15 ML SYR IV SCH (21:14)
[2019-02-07] MEDS: SODIUM CHLORIDE 0.9% 1000ML 1,000 ML IV SCH ×2 (00:49→05:37)
[2019-02-07] MEDS: KETOROLAC 30 MG/ML VIAL IV SCH ×2 (00:49→05:36)
[2019-02-07] MEDS: CEFAZOLIN 2000MG 2,000 MG/15 ML SYR IV SCH (05:36)
[2019-02-07 06:34] LABS: Basophils # (auto) 0.01 K/uL (0-0.2); Basophils % (auto) 0.1 %; Hematocrit (blood only) 35.8 % (42-52); Hemoglobin 11.9 g/dL (14.0-18.0); Immature Granulocytes # (auto) 0.03 K/uL (0.00-0.02); Immature Granulocytes % (auto) 0.2 %; Lymphocytes # (auto) 0.84 K/uL (1.2-3.4); Lymphocytes % (auto) 6.8 %; Mean Corpuscular Hgb Conc 33.2 g/dL (32-36); Mean Corpuscular Volume 90.9 fL (80-100); Mean Platelet Volume 8.8 fL (7.4-10.4); Monocytes % (auto) 2.4 %; Neutrophils # (auto) 11.13 K/uL (1.4-6.5); Neutrophils % (auto) 90.5 %; Platelet Count 227 K/uL (130-400); RDW Coefficient of Variation 13.1 % (11.5-14.5); RDW Standard Deviation 43.9 fL (36.4-46.3); Red Blood Count 3.94 M/uL (4.7-6.1); White Blood Count 12.31 K/uL (4.8-10.8)
[2019-02-07 07:12] LABS: BUN Creatinine Ratio 15.7 (10-20); Calcium 8.6 mg/dl (8.5-10.1); Creatinine Clr Calc Pharmacy 91.3 ml/min; Est GFR (African American) 91.4; Est GFR (Non-African American) 78.9; Potassium 4.3 mmol/L (3.5-5.1)
--- NOTE | 2019-02-07 07:23 | Orthopedic Progress Note ---
Date of Service February 07, 2019 Assessment & Plan (1) Periprosthetic fracture around internal prosthetic shoulder joint: Overall is doing fairly well. Is not having much pain in the left shoulder. Were going to let it heal where it is. He understands will be in a sling for 8 to 12 weeks. He can be discharged home today. I do not want any physical therapy with him at this time. I gave him another prescription for [place] for pain control. He will follow-up with orthopedics in 2 weeks. Present on Admission?: Yes Subjective Philippe was seen and examined at bedside this morning. Overall he is doing fairly well. Is not much pain in the left shoulder. I went over the procedure with him in detail and is happy that a simple open reduction was enough to keep everything stabilized. He understands he will be in a sling for 8 to 12 weeks. He was able to get some sleep last night. He is ready for discharge today. Physical Exam Musculoskeletal: On physical examination of the left shoulder, the dressing is clean and dry. He is wearing a sling as instructed. He does not have dorsiflexion of his wrist or extension of his fingers yet. He still some numbness in his hands. The block is still working. Results & Data Vital Signs (Past 12 Hours) Vital Signs Temp Pulse Resp BP Pulse Ox 02/07/19 04:40 36.5 C 65 16 120/82 95 02/06/19 23:40 36.5 C 66 16 129/67 93 Laboratory Results H & H 02/07/19 Range/Units 06:24 Hgb 11.9 L (14.0-18.0) g/dL Hct 35.8 L (42-52) % Diagnostic Findings Postoperative x-rays of the left shoulder show the prosthesis to be in anatomic alignment. Fracture appears to be reduced.
--- NOTE | 2019-02-07 07:24 | Discharge Summary ---
Date of Service February 07, 2019 Admission HPI Per Admitting Provider Philippe is a 68-year-old male with advanced rheumatoid arthritis. He underwent a reverse left shoulder arthroplasty on December 30, 2018. He was initially doing very well postoperatively. Unfortunately, 4 weeks after the procedure he was out of his sling and he reached suddenly to grab something that was falling. He felt a sudden crack in the shoulder. He went to physical therapy and came to our office with concerns. X-rays showed a periprosthetic glenoid neck fracture. I sent him for CT scan of the shoulder to confirm the diagnosis. After discussions in the office, he has elected to undergo a revision shoulder arthroplasty with either reimplantation of the glenoid baseplate or possible two stage revision. Specialty Data Orthopedic H & H 02/07/19 Range/Units 06:24 Hgb 11.9 L (14.0-18.0) g/dL Hct 35.8 L (42-52) % Discharge Data Consultations 02/06/19 16:23 Consult Case Management - Discharge Planning Routine Procedures Performed Operation Date: 02/06/19 13:10 Actual Procedures p Open reduction of Prosthesic fracture, Left shoulder (Left) - Adi De La O DO Hospital Course (1) Periprosthetic fracture around internal prosthetic shoulder joint: On February 06, 2019 Philippe arrived at [facility] and underwent an open reduction of his left shoulder without complication. He had a general anesthetic and a left interscalene nerve block. Postoperatively he was placed in a sling and discharged to general orthopedic floors. His hospital course is uneventful. On postop day #1 his H&H was stable and his pain was well controlled. I did not want any physical therapy with his left shoulder. He was discharged home with oral pain medications. He will follow-up with orthopedics in 2 to 3 weeks. Discharge Instructions Home Medications Medication Instructions Recorded Confirmed Voltaren 75 mg PO BID 11/25/18 02/06/19 alprazolam [Xanax] 0.25 mg PO HS 11/25/18 02/06/19 aspirin 81 mg PO QAM 11/25/18 02/06/19 lisinopril 10 mg PO QAM 11/25/18 02/06/19 multivitamin 1 tab PO QAM 11/25/18 02/06/19 pantoprazole [Protonix] 40 mg PO QAM 11/25/18 02/06/19 prednisone 10 mg PO QAM 11/25/18 02/06/19 risedronate [Actonel] 150 mg PO MONTHLY 11/25/18 02/06/19 Previous Rx's Medication Instructions Recorded hydrocodone-acetaminophen [[place]] 1 tab PO Q6H PRN #40 tab 02/07/19
[2019-02-07] MEDS: DOCUSATE SODIUM 100 MG CAP PO SCH (07:48)
[2019-02-07] MEDS ORDERED: PANTOprazole 40 MG TAB PO SCH (09:00)
[2019-02-07] MEDS ORDERED: MULTIVITAMIN TAB PO SCH (09:00)
[2019-02-07] MEDS ORDERED: predniSONE 10 MG TABLET PO SCH (09:00)
[2019-02-07] MEDS ORDERED: ASPIRIN 81 MG ECTAB PO SCH (09:00)
[2019-02-07] MEDS ORDERED: LISINOPRIL 10 MG TAB PO SCH (09:00)
--- NOTE | 2019-02-07 10:21 | Anesthesiology Progress Note ---
Date of Service February 07, 2019 Anesthesia Post Procedure Vital Signs Vital Signs: Temp Pulse Pulse Resp BP Pulse Ox 02/07/19 09:45 36.6 C 73 56 L 20 135/72 93 02/07/19 07:29 36.6 C 56 L 20 135/72 93 02/07/19 04:40 36.5 C 65 16 120/82 95 02/06/19 23:40 36.5 C 66 16 129/67 93 02/06/19 19:18 36.6 C 61 15 118/69 97 02/06/19 17:23 56 L 17 137/77 97 02/06/19 16:50 36.5 C 61 17 131/68 98 02/06/19 16:20 36.5 C 65 16 128/71 91 02/06/19 16:11 36.2 C L 02/06/19 16:00 73 16 109/74 93 02/06/19 15:50 69 15 124/66 93 02/06/19 15:40 85 18 128/73 93 02/06/19 15:30 79 17 133/69 100 02/06/19 15:21 36.0 C L 91 H 17 134/71 100 02/06/19 11:34 154/86 H 02/06/19 11:19 37.2 C 79 20 175/100 H 97 Notes Mental Status: alert / awake / arousable and participated in evaluation Nausea / Vomiting: adequately controlled Pain: adequately controlled Airway Patency, RR, SpO2: stable & adequate BP & HR: stable & adequate Hydration State: stable & adequate
== END 2019-02-07 11:06 | disposition home or self-care (01) | DRG 516 ==
LOC: ASU 10:45 → 3E 15:23

== ENCOUNTER 2019-02-17 14:13 | Inpatient (IN) ==
--- NOTE | 2019-02-16 08:38 | Anesthesiology Consultation ---
Date of Service February 16, 2019 Assessment & Plan (1) Encounter for pre-operative examination: - S/P Left shoulder open reduction: 02/06/19: Grade 3 view, MAC#3, ETT 8.0 at [facility] Chart Review Chart Review: Acceptable Risk for Surgery and Patient NOT seen in Pre Admission Testing History Surgery Operation Date: 02/17/19 07:00 Proposed Procedures p Left Shoulder Arthroplasty Resection, with Removal Hardware - Adi De La O, Height/Weight Height: 5 ft 10 in Weight: 114.09 kg Allergies Allergy/AdvReac Type Severity Reaction Status Date / Time No Known Allergies Allergy Mild Verified 02/06/19 11:10 Medications Home Medications Medication Instructions Recorded Confirmed Last Taken Voltaren 75 mg PO BID 11/25/18 02/06/19 02/01/19 alprazolam [Xanax] 0.25 mg PO HS 11/25/18 02/06/19 02/05/19 22:00 aspirin 81 mg PO QAM 11/25/18 02/06/19 02/06/19 05:30 lisinopril 10 mg PO QAM 11/25/18 02/06/19 02/05/19 05:00 multivitamin 1 tab PO QAM 11/25/18 02/06/19 02/05/19 05:00 pantoprazole [Protonix] 40 mg PO QAM 11/25/18 02/06/19 02/06/19 05:30 prednisone 10 mg PO QAM 11/25/18 02/06/19 02/06/19 05:30 risedronate [Actonel] 150 mg PO MONTHLY 11/25/18 02/06/19 01/09/19 hydrocodone-acetaminophen [[place]] 1 tab PO Q6H PRN #40 tab 02/07/19 Unknown Past Medical History Medical History Degenerative disc disease GERD (gastroesophageal reflux disease) CONTROLLED HTN (hypertension) History of anxiety Obesity Osteoarthritis Rheumatoid arthritis ON PREDNISONE 10MG DAILY (CHRONIC) Past Surgical History Surgical History H/O arthrodesis B/L FOOT + REVISION History of arthroscopic knee surgery RIGHT History of colonoscopy History of esophagogastroduodenoscopy (EGD) History of left shoulder replacement 12/30/18 [facility], MAC 4, ETT 8.0, GRADE VIEW II. SMOOTH IV INDUCTION, EZ MASK, ATRAUMATIC DVL X 1, OROPHARYNX CLEAR. History of surgery RUPTURED QUADRICEPS TENDON REPAIR History of tonsillectomy History of total hip arthroplasty RIGHT History of total knee replacement B/L History of total shoulder replacement Right reverse TSA= 07/17/16= Grade view 2, MAC 4, ETT 8.0 at [facility] Hx of removal of cyst RIGHT POSTERIOR SHOULDER S/P debridement LEFT FOOT WOUND Social History Smoking Status: Former smoker Hx Alcohol Use: Yes Alcohol type: beer alcohol intake frequency: a few times a month Hx Substance Use: No substance use type: does not use Substance Use Type Other:: used to use medical marijuana for RA pain but no longer using Testing Laboratory Results 02/07/19 WBC 12.31 (surgeon aware) H/H 11.9/35.8 PLATELETS 227 SODIUM 139 POTASSIUM 4.3 CHLORIDE 107 CO2 26 BUN 15 CREATININE 0.98 GLUCOSE 135 02/06/19 T&S B+Ab- 02/01/19 PT 10.2 PTT 24.3 INR 1.0 Electrocardiogram Date: 11/28/18 NSR at 60bpm. iRBBB. Chest X-Ray Date: 11/17/18 1 cm right midlung zone opacity, finding which is felt to be secondary to a healing rib fracture. No evidence of acute parenchymal consolidation. No evidence of failure. Cervical Spine Date: 11/28/18 No evidence for cervical spine instability during flexion or extension. Severe multilevel degenerative disc disease and facet arthrosis within the cervical spine which is similar to previous exam.
--- NOTE | 2019-02-17 06:56 | History & Physical Report ---
Date of Service February 17, 2019 Assessment & Plan (1) Periprosthetic fracture around internal prosthetic shoulder joint: We will proceed with a complete removal of hardware from his left shoulder. I am not to reimplant anything else at this time. I want the infections in his mouth to subside and I want the fractures to heal. He understands he will be left with a flail shoulder. I can always get a CT scan in the future to document fracture healing if we want to revisit reimplantation in the future. Postoperatively he will be kept overnight for postoperative medical management. Plan to discharge him to home tomorrow morning. Present on Admission?: Yes History of Present Illness Chief Complaint: Fracture dislocation of a left reverse shoulder arthroplasty Philippe is a 68-year-old male who underwent a left reverse shoulder arthroplasty about 6 weeks ago. He has severe rheumatoid arthritis and poor bone quality. Unfortunately about 4-1/2 weeks after the procedure he was out of his sling and he had a sudden movement of his shoulder and suffered a fracture dislocation. The fracture was along the glenoid neck medial to the coracoid. I took him to the operating room last week and did a closed reduction. After the reduction everything felt fairly stable. I was able to get his arm through a full range of motion. I thought I would leave him in a sling for 8 to 12 weeks and give a chance for the glenoid neck fracture to heal. Unfortunately because of his significant back pain in his rheumatological conditions he does not sleep well. He thrashes around a lot at night. The other night he felt a recurrent dislocation of his left shoulder. He came to my office and x-rays confirmed a fracture dislocation of a left reverse shoulder arthroplasty. He also has an infected tooth and he is scheduled to have that pulled in a couple of weeks. He is currently taking care of his and he needs to continue to drive. He is not going to tolerate long-term immobilization in a sling. Given all this information, and after discussions in the office, we have elected to proceed with a complete removal of hardware of the left shoulder and give it time to heal. After everything is healed, we can always revisit it in the future if we would like and I would be able to get a CAT scan if needed without any metal hardware in the shoulder. Removing the hardware also decreases my concern for future infections. Allergies Allergy/AdvReac Type Severity Reaction Status Date / Time No Known Allergies Allergy Mild Verified 02/16/19 09:11 Home Medications Home Medications Medication Instructions Recorded Confirmed Type alprazolam [Xanax] 0.25 mg PO HS 11/25/18 02/16/19 History aspirin 81 mg PO QAM 11/25/18 02/16/19 History lisinopril 10 mg PO QAM 11/25/18 02/16/19 History multivitamin 1 tab PO QAM 11/25/18 02/16/19 History pantoprazole [Protonix] 40 mg PO QAM 11/25/18 02/16/19 History prednisone 10 mg PO QAM 11/25/18 02/16/19 History risedronate [Actonel] 150 mg PO MONTHLY 11/25/18 02/16/19 History hydrocodone-acetaminophen [[place]] 1 tab PO Q6H PRN #40 tab 02/07/19 02/16/19 Rx diclofenac sodium 75 mg PO BID 02/16/19 02/16/19 History Past Med/Surg History Medical History Degenerative disc disease GERD (gastroesophageal reflux disease) CONTROLLED HTN (hypertension) History of anxiety Obesity Osteoarthritis Rheumatoid arthritis ON PREDNISONE 10MG DAILY (CHRONIC) Surgical History History of open reduction and internal fixation (ORIF) procedure LEFT SHOULDER OF PROSTHETIC H/O arthrodesis B/L FOOT + REVISION History of arthroscopic knee surgery RIGHT History of colonoscopy History of esophagogastroduodenoscopy (EGD) History of left shoulder replacement 12/30/18 [facility], MAC 4, ETT 8.0, GRADE VIEW II. SMOOTH IV INDUCTION, EZ MASK, ATRAUMATIC DVL X 1, OROPHARYNX CLEAR. History of surgery RUPTURED QUADRICEPS TENDON REPAIR History of tonsillectomy History of total hip arthroplasty RIGHT History of total knee replacement B/L History of total shoulder replacement Right reverse TSA= 07/17/16= Grade view 2, MAC 4, ETT 8.0 at [facility] Hx of removal of cyst RIGHT POSTERIOR SHOULDER S/P debridement LEFT FOOT WOUND Social History Preferred Language: Greek Communication Ability: Effective Wire Drawer Required: No Beliefs That Will Affect Care: None Current Living Situation: Spouse Other Information That Helps Us Care for You: No Feels Safe at Home: Yes Safety Concerns: Feels Safe At This Time Smoking Status: Former smoker Do You Dip or Chew Tobacco: No Smoking End Date: QUIT JANUARY 2018 Second Hand Exposure: Yes Tobacco Cessation Education Requested by Patient: No Hx Alcohol Use: Yes Alcohol type: beer Hx Substance Use: No Review of Systems All systems reviewed & are unremarkable except as noted in HPI & below Physical Exam Musculoskeletal: Physical examination of the left shoulder there is a little bit of bleeding from the tiffanie which replaced a week ago. These are covered. His radial median and ulnar nerves are checked and intact his wrist. His axillary nerve was not definitively checked at this time. He has obvious deformity of his left shoulder with an anterior dislocation of the prosthesis. Results & Data Diagnostic Findings X-rays of the left shoulder do show a fracture of the glenoid neck with inferior displacement of the glenosphere. There is an anterior dislocation of the humeral tray on the glenosphere.
[~2019-02-17 14:13] MED LIST changes: +CeleBREX 200 MG CAP PO SCH; -GABAPENTIN 300 MG PO SCH; +GABAPENTIN 300 MG x 2 PO SCH; +LACTATED RINGER'S 1,000 ML IV SCH; -LR 60ML/HR IV SCH; -ROPIVACAINE 0.5% 5 MG/ML 30 ML VIAL ONE; -ROPIVACAINE 0.5% HCL/PF 150 MG, BUPIVACAINE 0.5% MPF 30 ML, EPINEPHrine 30MG/30ML (OR U... INFIL SCH; -TRANEXAMIC ACID 1,000 MG **IV Intra-op IV SCH; -TRANEXAMIC ACID 1,000 MG **IV Pre-op IV SCH
--- NOTE | 2019-02-17 14:20 | History & Physical Bridge Note ---
Date of Service February 17, 2019 History & Physical Bridge Note I have examined the patient, reviewed the History & Physical and in the interval since the performance of the History & Physical I have noted the following changes of clinical significance: no changes noted
[2019-02-17] MEDS ORDERED: fentaNYL citrate 100 MCG/2 ML VIAL ONE (15:12)
[2019-02-17] MEDS ORDERED: MIDAZOLAM HCL 1 MG/ML 2ML VIAL ONE (15:12)
[2019-02-17] MEDS ORDERED: ROPIVACAINE 0.5% 5 MG/ML 30 ML VIAL ONE (15:19)
[2019-02-17] MEDS ORDERED: ROCURONIUM BROMIDE 10 MG/ML 5 ML VIAL ONE (15:27)
[2019-02-17] MEDS ORDERED: PROPOFOL IV EMULSION 10 MG/ML 20 ML VIAL IV ONE (15:27)
[2019-02-17] MEDS ORDERED: LIDOCAINE HCL 2% 2 ML VIAL/AMP(20MG/ML) INFIL ONE (15:27)
[2019-02-17] MEDS ORDERED: ONDANSETRON INJ 2 MG/ML 2 ML VIAL ONE (15:28)
[2019-02-17] MEDS ORDERED: LABETALOL HCL IV 5 MG/ML 20ML IV PRN (16:40)
[2019-02-17] MEDS ORDERED: ONDANSETRON INJ 2 MG/ML 2 ML VIAL IV PRN ×2 (16:40→17:04)
[2019-02-17] MEDS ORDERED: HYDROmorphone INJ 1 MG/ML SYRINGE IV PRN (16:40)
[2019-02-17] MEDS ORDERED: HYDROCORTISONE SOD SUCCINATE 100 MG/2 ML VIAL ONE (16:40)
[2019-02-17] MEDS ORDERED: ATROPINE SULFATE 0.1 MG/ML 10ML SYR IV PRN (16:40)
[2019-02-17] MEDS ORDERED: ePHEDrine sulfate 50 MG/ML AMP ONE (16:41)
[2019-02-17] MEDS ORDERED: NEOSTIGMINE METHYLSULFATE 5 MG/5 ML SYR ONE (16:55)
[2019-02-17] MEDS ORDERED: GLYCOPYRROLATE 0.2 MG/ML VIAL ONE (16:55)
[2019-02-17] MEDS ORDERED: METOCLOPRAMIDE HCL INJ 5 MG/ML 2 ML VIAL IV PRN (17:04)
[2019-02-17] MEDS ORDERED: MAGNESIUM HYDROXIDE SUSP 30 ML UDC PO PRN (17:04)
[2019-02-17] MEDS ORDERED: BISACODYL 10 MG SUPP PR PRN (17:04)
[2019-02-17] MEDS ORDERED: HYDROmorphone INJ 0.5 MG/0.5 ML SYR IV PRN (17:04)
[2019-02-17] MEDS ORDERED: NALOXONE HCL 0.4 MG/1 ML VIAL/CARP IV PRN (17:04)
--- NOTE | 2019-02-17 17:04 | Operative Report ---
Post Operative Report Pre & Post Diagnosis Operation Date: 02/17/19 07:00 Pre-Op Diagnosis: Fracture dislocation of left reverse shoulder arthroplasty Post-Op Diagnosis: Fracture dislocation of left reverse shoulder arthroplasty Procedure Operation Date: 02/17/19 07:00 Actual Procedures p Left Shoulder Arthroplasty removal of all hardware and components- Adi De La O DO Surgeon Adi De La O, Emblem Cutter Adi Richardson PAC Estimated Blood Loss 50 Findings Consistent with Post-Op Diagnosis Specimens None Complications none Disposition Disposition: Recovery Room Indications Philippe is a pleasant 68-year-old male with severe rheumatoid arthritis of his left shoulder. He is on chronic prednisone. I did a reverse left shoulder arthroplasty on him 6 weeks ago. Unfortunately 4 weeks after the procedure he was out of his sling he had a sudden jerking motion to his arm and cracked the glenoid neck. He suffered a fracture dislocation. I took him to the OR last week and did a closed reduction. He felt very stable at that point. I thought if I kept him in a sling for 8 to 12 weeks that the fracture may heal enough that we could save the reverse shoulder replacement. Unfortunately he will was having difficulty sleeping at night and thrashing around in his sleep and had a recurrent fracture dislocation of his left shoulder. He currently has an infected tooth and is scheduled to get that removed. He has trouble being compliant with the sling because he needs to drive and take care of his . He is still on prednisone treatment for his rheumatoid. Given all these factors, we elected to proceed with a removal of all hardware and components to give the fracture chance to heal. He understands he will be left with a flail shoulder. Description of Procedure On February 17, 2019 he arrived at [facility] for the above procedure. He was seen in the preoperative holding area and the operative extremity was identified and signed. He was given a preoperative antibiotic. He is taken back to the operating room and laid on table in supine position. He was put on general anesthesia. Is then put into the beachchair position. The left shoulder was prepped and draped in sterile fashion. A timeout was done. The patient and the operative extremity was properly identified. The previous incision was opened back up. There was a large hematoma which was evacuated. The humeral tray was removed followed by the humeral stem the glenoid was then exposed the glenosphere was then removed followed by the glenoid baseplate. There was a fracture of the glenoid neck and there was also now a transverse fracture through the face of the glenoid. The wound was irrigated with normal saline solution with pulse lavage. Hemostasis was obtained. The deltopectoral interval was closed with 2-0 Vicryl. Skin was closed with 3-0 Vicryl and a 3-0 Monocryl suture and tiffanie. He was placed in a soft dressing and a regular arm sling. He was then extubated and transferred to a [facility]. He was taken to the postanesthesia care unit in stable condition. He tolerated the procedure well. I attest to the content of the Intraoperative Record and any orders documented therein. Any exceptions are noted below.
[2019-02-17] MEDS ORDERED: SODIUM CHLORIDE 0.9% 1000ML 1,000 ML IV SCH (17:15)
--- NOTE | 2019-02-17 17:52 | XRay Report ---
XR shoulder LT min 2V routine CLINICAL HISTORY: Post shoulder surgery COMPARISON: Left shoulder radiographs February 06, 2019. FINDINGS: The hardware from the reverse total left shoulder arthroplasty has been removed. No residu al hardware is noted. Skin tiffanie are present. There are no unexpected radiopaque foreign bodies. Ot herwise, the appearance of the left shoulder is unchanged with a suspected periprosthetic scapular fr acture. IMPRESSION: Expected findings following removal of the left shoulder arthroplasty hardware. Electronically signed by: Michael Martínez M.D. 02/17/2019 5:51 PM
--- NOTE | 2019-02-17 18:03 | Anesthesiology Progress Note ---
Date of Service February 17, 2019 Anesthesia Post Procedure Vital Signs Vital Signs: Temp Pulse Pulse Resp BP Pulse Ox 02/17/19 18:00 56 L 14 147/76 H 99 02/17/19 17:50 36.3 C L 60 17 140/79 97 02/17/19 17:40 61 13 146/79 H 99 02/17/19 17:30 67 16 146/76 H 100 02/17/19 17:20 36.2 C L 67 15 149/74 H 100 02/17/19 14:57 37.1 C 70 18 157/97 H 97 Transfer of Care Handoff Completed per policy Notes Mental Status: alert / awake / arousable Patient Amnestic to Procedure: Yes Nausea / Vomiting: adequately controlled Pain: adequately controlled Airway Patency, RR, SpO2: stable & adequate BP & HR: stable & adequate Hydration State: stable & adequate Anesthetic Complications: no major complications apparent and Pt Satisfied with anesthetic care
[2019-02-17] MEDS: DOCUSATE SODIUM 100 MG CAP PO SCH (20:42)
[2019-02-17] MEDS: KETOROLAC TROMETHAMINE 15 MG/ML VIAL IV SCH (20:43)
[2019-02-17] MEDS ORDERED: SENNA 8.6 MG TAB PO SCH (21:00)
[2019-02-17] MEDS: ACETAMINOPHEN 500 MG TAB PO SCH (21:32)
[2019-02-17] MEDS: CEFAZOLIN 2000MG 2,000 MG/15 ML SYR IV SCH (23:42)
[2019-02-18] MEDS: KETOROLAC TROMETHAMINE 15 MG/ML VIAL IV SCH ×3 (02:15→14:25)
[2019-02-18] MEDS: ACETAMINOPHEN 500 MG TAB PO SCH ×2 (06:05→14:25)
[2019-02-18 06:57] LABS: Basophils # (auto) 0.06 K/uL (0-0.2); Basophils % (auto) 0.6 %; Eosinophils # (auto) 0.25 K/uL (0-0.5); Eosinophils % (auto) 2.6 %; Hematocrit (blood only) 32.3 % (42-52); Hemoglobin 10.3 g/dL (14.0-18.0); Immature Granulocytes # (auto) 0.03 K/uL (0.00-0.02); Immature Granulocytes % (auto) 0.3 %; Lymphocytes # (auto) 1.65 K/uL (1.2-3.4); Mean Corpuscular Hgb Conc 31.9 g/dL (32-36); Mean Corpuscular Volume 90.7 fL (80-100); Mean Platelet Volume 8.5 fL (7.4-10.4); Monocytes # (auto) 0.71 K/uL (0.11-0.59); Monocytes % (auto) 7.3 %; Neutrophils # (auto) 7.02 K/uL (1.4-6.5); Neutrophils % (auto) 72.2 %; Platelet Count 194 K/uL (130-400); RDW Coefficient of Variation 13.2 % (11.5-14.5); RDW Standard Deviation 44.3 fL (36.4-46.3); Red Blood Count 3.56 M/uL (4.7-6.1); White Blood Count 9.72 K/uL (4.8-10.8)
[2019-02-18 07:28] LABS: BUN Creatinine Ratio 16.2 (10-20); Calcium 8.4 mg/dl (8.5-10.1); Creatinine Clr Calc Pharmacy 119.7 ml/min; Est GFR (African American) 109.2; Est GFR (Non-African American) 94.3; Potassium 3.4 mmol/L (3.5-5.1)
--- NOTE | 2019-02-18 08:37 | Orthopedic Progress Note ---
Date of Service February 18, 2019 Assessment & Plan (1) Periprosthetic fracture around internal prosthetic shoulder joint: Overall he is doing very well. Is not having too much pain in the left shoulder. He will ambulate a little bit with the nurses this morning and then can be discharged home. He is on oxycodone for pain control. He will follow-up with orthopedics in 2 weeks. The nursing staff can change his dressing. Present on Admission?: Yes Subjective Philippe is seen and examined at bedside this morning. Overall he is not having much pain in the left shoulder. He was able to get a good night sleep. We talked at bedside about his operation. He understands everything and has no complaints. Physical Exam Musculoskeletal: On physical examination of his left shoulder he is having some drainage from the dressing and it was changed this morning. His radial, median, and ulnar nerves are checked and intact his wrist. His axillary nerve was not definitively checked yet. He is wearing his sling as instructed. Results & Data Vital Signs (Past 12 Hours) Vital Signs Temp Pulse Pulse Resp BP Pulse Ox 02/18/19 06:54 36.6 C 53 L 18 139/79 97 02/18/19 03:34 36.6 C 68 20 125/65 95 02/17/19 23:23 36.4 C L 61 20 121/71 94 02/17/19 21:21 36.7 C 61 17 130/68 93 Laboratory Results H & H 02/18/19 Range/Units 06:44 Hgb 10.3 L (14.0-18.0) g/dL Hct 32.3 L (42-52) % Diagnostic Findings Postoperative x-rays of the left shoulder show complete removal of all hardware. It is essentially a resection arthroplasty of the left shoulder.
--- NOTE | 2019-02-18 08:38 | Discharge Summary ---
Date of Service February 18, 2019 Admission HPI Per Admitting Provider Philippe is a 68-year-old male who underwent a left reverse shoulder arthroplasty about 6 weeks ago. He has severe rheumatoid arthritis and poor bone quality. Unfortunately about 4-1/2 weeks after the procedure he was out of his sling and he had a sudden movement of his shoulder and suffered a fracture dislocation. The fracture was along the glenoid neck medial to the coracoid. I took him to the operating room last week and did a closed reduction. After the reduction everything felt fairly stable. I was able to get his arm through a full range of motion. I thought I would leave him in a sling for 8 to 12 weeks and give a chance for the glenoid neck fracture to heal. Unfortunately because of his significant back pain in his rheumatological conditions he does not sleep well. He thrashes around a lot at night. The other night he felt a recurrent dislocation of his left shoulder. He came to my office and x-rays confirmed a fracture dislocation of a left reverse shoulder arthroplasty. He also has an i nfected tooth and he is scheduled to have that pulled in a couple of weeks. He is currently taking care of his and he needs to continue to drive. He is not going to tolerate long-term immobilization in a sling. Given all this information, and after discussions in the office, we have elected to proceed with a complete removal of hardware of the left shoulder and give it time to heal. After everything is healed, we can always revisit it in the future if we would like and I would be able to get a CAT scan if needed without any metal hardware in the shoulder. Removing the hardware also decreases my concern for future infections. Specialty Data Orthopedic H & H 02/18/19 Range/Units 06:44 Hgb 10.3 L (14.0-18.0) g/dL Hct 32.3 L (42-52) % Discharge Data Procedures Performed Operation Date: 02/17/19 07:00 Actual Procedures p Left Shoulder Arthroplasty Resection, with Removal Hardware(Left) - Adi De La O DO Hospital Course (1) Periprosthetic fracture around internal prosthetic shoulder joint: On February 17, 2019 Philippe arrived at [facility] and underwent a removal of hardware of his left shoulder. Postoperatively he was placed in arm sling and discharged to general orthopedic floors. His hospital course is uneventful. On postop day #1 his dressing was changed. He was not having much pain in the left shoulder. He was able to ambulate with nursing staff. He was then discharged home on oral pain medications. He will follow-up with orthopedics in 2 weeks. Discharge Instructions Home Medications Medication Instructions Recorded Confirmed alprazolam [Xanax] 0.25 mg PO HS 11/25/18 02/17/19 aspirin 81 mg PO QAM 11/25/18 02/17/19 lisinopril 10 mg PO QAM 11/25/18 02/17/19 multivitamin 1 tab PO QAM 11/25/18 02/17/19 pantoprazole [Protonix] 40 mg PO QAM 11/25/18 02/17/19 prednisone 10 mg PO QAM 11/25/18 02/17/19 risedronate [Actonel] 150 mg PO MONTHLY 11/25/18 02/17/19 diclofenac sodium 75 mg PO BID 02/16/19 02/17/19 amoxicillin 500 mg PO TID 02/17/19 02/17/19 Previous Rx's Medication Instructions Recorded hydrocodone-acetaminophen [[place]] 1 tab PO Q6H PRN #40 tab 02/07/19 oxycodone 5 - 10 mg PO Q4H PRN #40 tab 02/18/19
[2019-02-18] MEDS: CEFAZOLIN 2000MG 2,000 MG/15 ML SYR IV SCH (08:41)
[2019-02-18] MEDS: DOCUSATE SODIUM 100 MG CAP PO SCH (08:41)
[2019-02-18] MEDS: OXYCODONE HCL IR 5 MG TAB (IMMEDIATE RELEASE) PO PRN ×2 (08:42→14:26)
[2019-02-18] MEDS ORDERED: MULTIVITAMIN TAB PO SCH (09:00)
== END 2019-02-18 15:00 | disposition home or self-care (01) | DRG 483 ==
LOC: ASU 14:13 → 3E 17:04

== ENCOUNTER 2024-08-07 06:04 | Inpatient (IN) ==
--- NOTE | 2024-07-11 13:54 | PAT Medication Instructions ---
Medication Instructions Date of Service July 11, 2024 Home Medications Medication Instructions Recorded hydrocodone 10 mg-acetaminophen 1 tab PO Q6H PRN Pain #40 tabs 02/18/19 325 mg tablet ([place]) oxycodone 5 mg tablet 5 mg PO Q6H PRN pain #30 tabs 06/21/24 alprazolam 0.25 mg tablet (Xanax) 0.25 mg PO HS lisinopril 10 mg tablet 10 mg PO QAM multivitamin 1 tab PO QAM pantoprazole 40 mg tablet,delayed release (Protonix) 40 mg PO QAM prednisone 10 mg tablet 10 mg PO QAM diclofenac sodium 75 mg tablet,delayed release 75 mg PO BID hydrocodone 10 mg-acetaminophen 325 mg tablet ([place]) 1 tab PO Q6H PRN Pain oxycodone 5 mg tablet 5 mg PO Q6H PRN pain Medical Thc 1 amp sublingual UD PRN anxiety/pain cefadroxil 500 mg capsule 500 mg PO BID ferrous sulfate 325 mg (65 mg iron) tablet (iron) 325 mg PO DAILY vitamin B12 500 mcg-folic acid 400 mcg tablet 1 tab PO DAILY Continue as directed cefadroxil 500 mg capsule 500 mg PO BID ASK your surgeon for instructions diclofenac sodium 75 mg tablet,delayed release 75 mg PO BID DO NOT take the morning of surgery lisinopril 10 mg tablet 10 mg PO QAM multivitamin 1 tab PO QAM Medical Thc 1 amp sublingual UD PRN anxiety/pain ferrous sulfate 325 mg (65 mg iron) tablet (iron) 325 mg PO DAILY vitamin B12 500 mcg-folic acid 400 mcg tablet 1 tab PO DAILY Take morning of surgery With a small sip of water, OTHERWISE NOTHING TO EAT OR DRINK AFTER MIDNIGHT: pantoprazole 40 mg tablet,delayed release (Protonix) 40 mg PO QAM prednisone 10 mg tablet 10 mg PO QAM hydrocodone 10 mg-acetaminophen 325 mg tablet ([place]) 1 tab PO Q6H PRN Pain (if needed) oxycodone 5 mg tablet 5 mg PO Q6H PRN pain (if needed) Take evening before surgery alprazolam 0.25 mg tablet (Xanax) 0.25 mg PO HS hydrocodone 10 mg-acetaminophen 325 mg tablet ([place]) 1 tab PO Q6H PRN Pain (if needed) oxycodone 5 mg tablet 5 mg PO Q6H PRN pain (if needed) Medical Thc 1 amp sublingual UD PRN anxiety/pain (if needed) Other Notes If you have any questions please call us at [phone] or [phone] or [phone] or [phone]
--- NOTE | 2024-07-18 14:04 | Anesthesiology Consultation ---
Date of Service July 18, 2024 Assessment & Plan (1) Encounter for pre-operative examination: - Infectious disease screening: Per assessment on 07/18/24- No known recent infectious disease contacts or current infectious disease symptoms. - S/P Left shoulder removal of hardware/components (02/17/19): Grade 2 view, MAC#4, ETT 7.5 + regional at [facility] - Chronic steroid use: Prednisone 10mg daily (chronic) for rheumatoid arthritis Chart Review Chart Review: Acceptable Risk for Surgery and Patient seen in Pre Admission Testing Teaching & Discussion Pre-Anesthesia Teaching/Discussion Notes: Instructed NPO after midnight before surgery,except medications with 15 cc of water. Medication instructions provided according to the PAT guidelines. History Surgery Operation Date: 08/07/24 12:00 Proposed Procedures p Revision Right Reverse Total Shoulder Arthroplasty vs Resection Arthroplasty - Adi De La O DO Height/Weight Height: 5 ft 7 in Weight: 83.915 kg Allergies Allergy/AdvReac Type Severity Reaction Status Date / Time No Known Allergies Allergy Mild Verified 07/11/24 10:12 Medications Home Medications Medication Instructions Recorded Confirmed Last Taken alprazolam 0.25 mg tablet (Xanax) 0.25 mg PO HS 11/25/18 07/11/24 02/16/19 22:00 lisinopril 10 mg tablet 10 mg PO QAM 11/25/18 07/11/24 02/16/19 07:00 multivitamin 1 tab PO QAM 11/25/18 07/11/24 02/16/19 07:00 pantoprazole 40 mg tablet,delayed 40 mg PO QAM 11/25/18 07/11/24 02/17/19 07:00 release (Protonix) prednisone 10 mg tablet 10 mg PO QAM 11/25/18 07/11/24 02/17/19 07:00 diclofenac sodium 75 mg 75 mg PO BID 02/16/19 07/11/24 02/17/19 07:00 tablet,delayed release hydrocodone 10 mg-acetaminophen 1 tab PO Q6H PRN Pain #40 tabs 02/18/19 07/11/24 Unknown 325 mg tablet ([place]) oxycodone 5 mg tablet 5 mg PO Q6H PRN pain #30 tabs 06/21/24 07/11/24 Unknown Medical Thc 1 amp sublingual UD PRN 07/11/24 07/11/24 Unknown anxiety/pain cefadroxil 500 mg capsule 500 mg PO BID 07/11/24 07/11/24 Unknown ferrous sulfate 325 mg (65 mg 325 mg PO DAILY 07/11/24 07/11/24 Unknown iron) tablet (iron) vitamin B12 500 mcg-folic acid 400 1 tab PO DAILY 07/11/24 07/11/24 Unknown mcg tablet Past Medical History Medical History Chronic anemia Degenerative disc disease GERD (gastroesophageal reflux disease) History of anxiety HTN (hypertension) Hx of osteomyelitis Left BKA 08/2022 Obesity Osteoarthritis Rheumatoid arthritis 10mg predinsone daily Monitored by PCP Shoulder dislocation Staph infection Sepsis x3- most recent 05/2024 at [facility] On lifelong abx (oral cefadroxil currently) Follows with ID/Dr. Michelle Solorzano ([facility]) Exercise / Class Metabolic Activity III < 4 Walking/Shop/Light housework (uses walker) Past Surgical History Surgical History H/O arthrodesis B/L feet x2 History of arthroscopic knee surgery Right History of below-knee amputation of left lower extremity (08/2022) R/t osteomylitis 08/2022 > had subsequent revision 11/2022 History of colonoscopy History of esophagogastroduodenoscopy (EGD) History of left shoulder replacement (2018) 12/2018 History of shoulder surgery Left shoulder removal of hardware/components (02/17/19): Grade 2 view, MAC#4, ETT 7.5 + regional at [facility] History of surgery (1989) Right ruptured quadriceps tendon repair History of surgery on right wrist Right wrist fusion + 3 fingers on right hand repaired d/t tendon damage History of tonsillectomy History of total hip arthroplasty Right History of total knee replacement B/L History of total replacement of right shoulder joint (07/17/16) Hx of removal of cyst Right shoulder S/P debridement Left foot wound Past Anesthesia History No Hx of Anesthesia Complications and No Family Hx of Anesthesia Complications History of PONV No Hx of PONV and No Hx of Motion Sickness Social History Smoking Status: Former smoker Do You Dip or Chew Tobacco: No Smoking End Date: 2009 Hx Alcohol Use: Yes Alcohol type: beer alcohol intake frequency: holidays/special occasions only Hx Substance Use: Yes substance use type: marijuana (Occasional Medical marijuana (tincture- advised)) Review of Systems Patient denies chest pain, shortness of breath, fever, chills, cough, wheezing, palpitations. Physical Exam Vital Signs BP 114/73 P 67 TEMP 98.1 SP02 98%RA RESP 18 Physical Full cervical extension range of motion. Full TMJ range of motion. TMD 3 finger breaths Mallampati Score II Dentition: upper full denture, several missing teeth Lungs: clear throughout to auscultation Cardiac: regular rate and rhythm, no murmurs noted Spine: normal Carotid arteries: negative bruit Extremities: no LE edema Short neck Lab Results Anesthesia Preop Results Results Anesthesia Widget: WBC 10.16 K/ul (4.8-10.8) 07/18/24 Hgb 9.7 g/dl (14.0-18.0) L 07/18/24 Hct 31.4 % (42.0-52.0) L 07/18/24 Plt 337 K/uL (130-400) 07/18/24 Na 140 mmol/L (136-145) 06/15/24 K 4.5 mmol/L (3.5-5.1) 06/15/24 Cl 107 mmol/L (98-107) 06/15/24 CO2 27.0 mmol/L (21-32) 06/15/24 BUN 15.0 mg/dL (7-18) 06/15/24 Creat 1.00 mg/dL (0.6-1.4) 06/15/24 Glucose Level 100 mg/dL (70-99) H 06/15/24 PT 10.7 Seconds (9.0-12.0) 07/18/24 PTT 26 Seconds (21-31) 07/18/24 INR 1.0 (0.9-1.1) 07/18/24 Blood Type B Positive 07/18/24 Antibody Screen NEGATIVE 07/18/24 Testing Laboratory Results *Anemia on 07/18/24 preop labs with hgb at 9.7- stable from comparison 06/15/2024 labs with hgb at 9.8* 06/15/24 CRP 0.70 ESR 40 Electrocardiogram Date: 07/18/24 SB with short NM at 57bpm. "Otherwise normal ECG" Chest X-Ray Date: 07/18/24 FINDINGS: The cardiac silhouette measures within normal limits. The hilar and mediastinal structures appear unremarkable. The lungs are clear. Changes of the thoracic spine. Dislocated right shoulder arthroplasty. Postinflammatory/traumatic changes of the proximal left humerus. Uncovertebral degenerative changes cervical spine. IMPRESSION: No evidence of acute cardiopulmonary disease, communicable disease or tuberculosis. Interval dislocated right shoulder arthroplasty. Cervical Spine X-ray Date: 11/28/18 No evidence for cervical spine instability during flexion or extension. Severe multilevel degenerative disc disease and facet arthrosis within the cervical spine which is similar to previous exam.
[2024-08-07] MEDS ORDERED: BUPIVACAINE 0.5 % 5 MG/1 ML PF 10ML VIAL ONE (06:19)
--- NOTE | 2024-08-07 06:31 | History & Physical Bridge Note ---
Date of Service August 07, 2024 History & Physical Bridge Note I have examined the patient, reviewed the History & Physical and in the interval since the performance of the History & Physical I have noted the following changes of clinical significance: no changes noted
[2024-08-07] MEDS ORDERED: fentaNYL citrate PF 100 MCG/2 ML VIAL ONE (06:55)
[2024-08-07] MEDS ORDERED: MIDAZOLAM HCL 1 MG/ML 2ML VIAL ONE (06:55)
[2024-08-07] MEDS ORDERED: ONDANSETRON INJ 2 MG/ML 2 ML VIAL ONE (06:57)
[2024-08-07] MEDS ORDERED: LIDOCAINE 2% 2 ML VIAL/AMP(20MG/ML) INFIL ONE (06:57)
[2024-08-07] MEDS ORDERED: PROPOFOL IV EMULSION 10 MG/ML 20 ML VIAL IV ONE (06:57)
[2024-08-07] MEDS ORDERED: DEXAMETHASONE SOD INJ 4 MG/ML VIAL ONE (07:01)
[2024-08-07] MEDS: LR 15ML/HR IV SCH (07:23)
[2024-08-07] MEDS: FAMOTIDINE 20 MG TAB PO SCH (07:24)
[2024-08-07] MEDS: ACETAMINOPHEN 500 MG TAB PO SCH (07:24)
[2024-08-07] MEDS: dexAMETHasone**PF** 10 MG/ML VIAL IV SCH (07:24)
[2024-08-07] MEDS: GABAPENTIN 300 MG CAP PO SCH (07:24)
[2024-08-07] MEDS: LR 60ML/HR IV SCH (07:24)
[2024-08-07] MEDS ORDERED: HYDROCORTISONE SOD SUCCINATE 100 MG/2 ML VIAL ONE (07:45)
[2024-08-07] MEDS: TRANEXAMIC ACID 1,000 MG **IV Pre-op IV SCH (07:49)
[2024-08-07] MEDS: ceFAZolin 2000MG 2,000 MG/15 ML SYR IV SCH ×2 (08:00→18:51)
[2024-08-07] MEDS ORDERED: ePHEDrine sulfate 50 MG/5 ML SYR ONE (08:24)
[2024-08-07] MEDS ORDERED: ePHEDrine sulfate 50 MG/ML AMP ONE (08:41)
[2024-08-07] MEDS: ORTHO JOINT ANESTHETIC ONE (09:03)
[2024-08-07] MEDS: ROPIV 0.5% 246mg, Ketorolac 30mg, EPINEPHrine 0.5mg in NSS INFIL SCH (09:04)
[2024-08-07] MEDS: TRANEXAMIC ACID 1,000 MG **IV Intra-op IV SCH (09:04)
--- NOTE | 2024-08-07 09:18 | Operative Report ---
PG Post Operative Report Pre & Post Diagnosis Operation Date: 08/07/24 08:00 Pre-Op Diagnosis: Fracture dislocation right reverse shoulder arthroplasty Post-Op Diagnosis: Fracture dislocation right reverse shoulder arthroplasty I identified the patient and participated in the time-out.: Yes Procedure Operation Date: 08/07/24 08:00 Actual Procedures p Right Revision Reverse Total Shoulder Arthroplasty(Right) - Adi De La O DO Surgeon Adi De La O DO Freight Sorter None Estimated Blood Loss 100 Findings Consistent with Post-Op Diagnosis Specimens None Description of Procedure On August 07, 2024 Philippe arrived at [facility] for the above procedure. He was seen in the preoperative holding area and the operative extremity identified and signed. He was given a preoperative antibiotic and a right interscalene nerve block. He was taken back the operative room and laid on table in supine position. He was put under general anesthesia. He was put into the beachchair position. The right shoulder was prepped and draped in sterile fashion. A timeout was done. The patient and the operative extremity was properly identified. The previous incision was opened back up. Dissection was taken down through the fascia. The interval was created between the deltoid and the pectoralis. The anteriorly dislocated shoulder was easily identified. Soft tissue remnants were stripped from around the proximal prosthesis. The shoulder was then delivered out of the incision. The humeral tray was removed. I did not see any signs of gross infection. The proximal part of the humeral stem was exposed. The humeral stem was well-fixed. The glenoid was then exposed. The glenoid and the glenosphere were inspected. There was no loosening of the glenoid baseplate or the glenosphere. Everything seemed to be well-fixed. The entire shoulder joint was then irrigated with normal saline solution. Several different trial head and bearing combinations were used and a size +6 humeral tray with a +3 retentive bearing seem to give the best reduction, with the best motion and motor stability. The trials were then removed. The final size +3 retentive humeral bearing was then snapped into a +6 humeral tray. The humeral tray was then impacted onto the humeral stem. The shoulder was then reduced. The shoulder was brought through full range of motion and felt to be stable. A 3- minute Betadine lavage was then done. Surrounding soft tissues were injected with 100 cc of an orthopedic pain control cocktail. A final irrigation was done of the joint. The deltopectoral interval was closed with 2-0 Vicryl suture. Skin was closed with 3-0 Vicryl and tiffanie. He was then placed in a regular arm sling. He was then extubated and transferred to a hospital bed. He was taken to the postanesthesia care unit in stable condition. He tolerated the procedure well. I attest to the content of the Intraoperative Record and any orders documented therein. Any exceptions are noted below.
--- NOTE | 2024-08-07 10:06 | XRay Report ---
XR shoulder RT min 2V routine HISTORY: 73 years-old Male Post shoulder surgery COMPARISON: Shoulder radiographs 06/13/2024 TECHNIQUE: 2 views of the right shoulder FINDINGS: Reverse total arthroplasty demonstrates satisfactory alignment. Overlying skin tiffanie with expected postoperative soft tissue swelling and deep tissue air. Corticated ossifications are again noted supe rior to the joint space. Chronic appearing scapular fracture deformity. IMPRESSION: Satisfactory alignment of the shoulder arthroplasty. ACT 112: Negative or not required by law. The above report was generated using voice recognition software. It may contain grammatical, syntax o r spelling errors. Electronically signed by: Jigar Stern M.D. 08/07/2024 10:05 AM
[2024-08-07] MEDS ORDERED: NALOXONE HCL 0.4 MG/1 ML VIAL/CARP IV PRN (10:40)
[2024-08-07] MEDS ORDERED: ONDANSETRON INJ 2 MG/ML 2 ML VIAL IV PRN (10:40)
[2024-08-07] MEDS ORDERED: METOCLOPRAMIDE HCL INJ 5 MG/ML 2 ML VIAL IV PRN (10:40)
[2024-08-07] MEDS ORDERED: MAGNESIUM HYDROXIDE SUSP 30 ML UDC PO PRN (10:40)
[2024-08-07] MEDS ORDERED: bisacodyL 10 MG SUPP PR PRN (10:40)
[2024-08-07] MEDS: KETOROLAC TROMETHAMINE 15 MG/ML VIAL IV SCH (11:26)
[2024-08-07] MEDS ORDERED: ATROPINE SULFATE 0.1 MG/ML 10ML SYR IV PRN (14:09)
[2024-08-07] MEDS ORDERED: ePHEDrine sulfate 50 MG/ML AMP IV PRN (14:09)
--- NOTE | 2024-08-07 14:09 | Anesthesiology Progress Note ---
Date of Service August 07, 2024 Anesthesia Post Procedure Vital Signs Vital Signs: Temp Pulse Resp BP Pulse Ox O2 Del Method O2 Flow Rate 08/07/24 13:00 36.4 C L 78 16 122/72 96 Room Air 08/07/24 11:58 36.4 C L 74 16 117/70 95 Room Air 08/07/24 11:22 36.5 C 85 16 119/68 96 Room Air 08/07/24 10:10 36.4 C L 80 16 124/54 L 98 Room Air 08/07/24 10:00 70 16 131/54 L 97 Room Air 08/07/24 09:50 70 14 130/59 L 98 Room Air 08/07/24 09:40 69 14 135/59 L 98 Room Air 08/07/24 09:30 74 17 158/66 H 100 Oxymask 3 08/07/24 09:21 36.2 C L 79 16 150/60 H 98 Oxymask 6 08/07/24 06:53 37.0 C 75 18 147/66 H 97 Room Air Transfer of Care Handoff Completed per policy Notes Mental Status: alert / awake / arousable Patient Amnestic to Procedure: Yes Nausea / Vomiting: adequately controlled Pain: adequately controlled Airway Patency, RR, SpO2: stable & adequate BP & HR: stable & adequate Hydration State: stable & adequate Anesthetic Complications: no major complications apparent and Pt Satisfied with anesthetic care
[2024-08-07] MEDS: DOCUSATE SODIUM 100 MG CAP PO SCH (20:23)
[2024-08-07] MEDS: ALPRAZolam 0.25 MG TABLET PO SCH (20:23)
[2024-08-07] MEDS: SENNA 8.6 MG TAB PO SCH (20:23)
--- NOTE | 2024-08-08 06:49 | Orthopedic Progress Note ---
Date of Service August 08, 2024 Assessment & Plan (1) Status post shoulder replacement: Overall he is doing fairly well. He is not having much pain in the right shoulder. He will be seen by physical therapy today for ambulation and range of motion exercises. He would like to go to [facility]. He is orthopedically stable for discharge to rehab later today if a bed becomes available. Saige Paez was seen and examined at bedside this morning. Overall he is doing very well. He is not having too much pain in the right shoulder. He was able to get some sleep last night and has no complaints.. Review of Systems All systems reviewed & are unremarkable except as noted in HPI & below. Physical Exam On physical exam of the right shoulder, the dressing is clean and dry. He is wearing his sling as instructed. He does have some motion of his hand and his wrist.. Results & Data Results & Data Laboratory Results . Diagnostic Findings Postoperative x-rays of the right shoulder show the prosthesis to be in anatomic alignment without any evidence of fracture, dislocation, or loosening.. PG Care Time/CCT Total # of Minutes Spent Total Time Spent with Patient: Total time spent is greater than 50% in coordination of care (as documented) at patient's floor/unit and/or counseling patient: Coding Level of Care Code 77156 Post Operative Follow-Up Diagnoses Status post shoulder replacement Z96.619
[2024-08-08] MEDS: CHOLECALCIFEROL 125 MCG (5,000 UNITS) TAB PO SCH (09:08)
[2024-08-08] MEDS: CYANOCOBALAMIN (B-12) 100 MCG TABLET PO SCH (09:08)
[2024-08-08] MEDS: MULTIVITAMIN TAB PO SCH (09:09)
[2024-08-08] MEDS: FERROUS SULFATE 325 MG TAB PO SCH (09:09)
[2024-08-08] MEDS: predniSONE 10 MG TABLET PO SCH (09:09)
[2024-08-08] MEDS: lisinopril 10 MG TAB PO SCH (09:09)
[2024-08-08] MEDS: PANTOprazole 40 MG TAB PO SCH (09:09)
[2024-08-09] MEDS: HYDROcodone/ACETAMINOPHEN 10/325 TAB PO PRN (09:10)
--- NOTE | 2024-08-09 10:38 | Orthopedic Progress Note ---
Date of Service August 09, 2024 Assessment & Plan (1) Status post shoulder replacement: Philippe is doing well in regard to his right shoulder replacement. He is waiting for placement with [facility]. He can continue working with physical therapy and Occupational Therapy for range of motion exercises throughout his hospital stay. Can also continue them per Dr. De La O's protocol at [facility]. Can be discharged if bed is available. Please reach out with any questions or concerns. Subjective Operation Date: 08/07/24 08:00 Actual Procedures p Right Revision Reverse Total Shoulder Arthroplasty(Right) - Adi De La O DO Patient is postop day 2 from a right reverse total shoulder arthroplasty. He states he is doing well. We did adjust his sling at today's visit. He is waiting on placement with [facility]. Other than that, he is doing fine orthopedically. Review of Systems All systems reviewed & are unremarkable except as noted in HPI & below. Physical Exam General: Alert and oriented. No acute distress. Right shoulder: Dressing is intact without saturation. We did adjust his sling today. Neurovascular intact. Results & Data Results & Data Laboratory Results . Diagnostic Findings . PG Care Time/CCT Total # of Minutes Spent Total Time Spent with Patient: Total time spent is greater than 50% in coordination of care (as documented) at patient's floor/unit and/or counseling patient: Coding Diagnoses Status post shoulder replacement Z96.619
[2024-08-09] MEDS: cefaDROXiL 500 MG CAP PO SCH (10:56)
[2024-08-09 15:51] VITALS: TEMP 97.7
[2024-08-09] MEDS: KETOROLAC TROMETHAMINE 15 MG/ML VIAL IV PRN (17:32)
[2024-08-09 20:15] VITALS: PULSE 59; RESP 16
[2024-08-10] MEDS: HYDROmorphone INJ 0.5 MG/0.5 ML SYR IV PRN (04:29)
--- NOTE | 2024-08-10 07:42 | Orthopedic Progress Note ---
Date of Service August 10, 2024 Assessment & Plan (1) Status post shoulder replacement: Overall he is doing fairly well. He is not having much pain in the right shoulder. He is doing well with physical therapy. We are awaiting placement at [facility]. He is orthopedically stable for discharge when insurance authorization goes through when a bed becomes available. Saige Paez was seen and examined at bedside this morning. Overall is doing fairly well. He is not having much pain in the right shoulder. He is wearing his sling as instructed. He has no complaints.. Review of Systems All systems reviewed & are unremarkable except as noted in HPI & below. Physical Exam On physical exam of the right shoulder, the dressing is clean and dry. He is wearing his sling as instructed.. Results & Data Results & Data Laboratory Results . Diagnostic Findings . PG Care Time/CCT Total # of Minutes Spent Total Time Spent with Patient: Total time spent is greater than 50% in coordination of care (as documented) at patient's floor/unit and/or counseling patient: Coding Level of Care Code 37763 Post Operative Follow-Up Diagnoses Status post shoulder replacement Z96.619
[2024-08-10 08:01] VITALS: BP 134/76; O2SAT 99
== END 2024-08-10 12:37 | disposition home health service (06) | DRG 512 ==
LOC: ASU 06:04 → 3N 06:04